=== PATIENT | female | born 1985 | race Two or more races ===

== ENCOUNTER → 2024-06-17 | Outpatient (CLI) | payer MEDICAID, SELFPAY ==
--- NOTE | 2024-06-17 07:45 | XR_ITS ---
Examination: MRI lumbar spine without contrast Date and time of exam: June 17, 2024 0735 hrs. Comparison February 25, 2015 Indications: Low back pain radiating down the right leg 15 years after fall injury, worse the last year Technique: Multiple MRI axial and sagittal sections lumbar spine. Sagittal T2-weighted images, TR 3500, TE 118 T1 weighted transverse sections, TR 688 T8.5, T2-weighted sagittal sections T1 weighted sagittal sections TR 621, TE 30 T2 axial sections, TR 4, 190, TE 84. Findings: Grade 1 anterolisthesis L5 on S1 Advanced disc during posteriorly L5-S1 Adequate marrow signal lumbar vertebral bodies No lumbar vertebral body compression fracture L5-S1 7 mm central lumbar disc bulge extending to the foraminal regions with severe left moderate right L5 ganglionic compression L4-L5 no disc protrusion L3-L4 3 mm central lumbar disc bulge L2-L3 no disc protrusion L1-L2 no disc protrusion Impression: L5-S1 7 mm central lumbar disc bulge extending to the foraminal regions with severe left moderate right L5 ganglionic compression L3-L4 3 mm central lumbar disc bulge
== END | disposition home or self-care (01) ==
PROVIDERS: PCP Specialist; Referring Provider Specialist; Visit Provider Specialist
DX: M51.369 Other intervertebral disc degeneration, lumbar region without mention of lumbar back pain or lower extremity pain (principal); M51.379 Other intervertebral disc degeneration, lumbosacral region without mention of lumbar back pain or lower extremity pain; G95.20 Unspecified cord compression
CPT/HCPCS: 72148

== ENCOUNTER 2025-04-01 16:36 | Emergency (ER) | payer MEDICAID, SELFPAY ==
[2025-04-01 16:44] VITALS: BP 141/95; PULSE 110; RESP 18; TEMP 37.5; O2SAT 98; BMI 36.7
--- NOTE | 2025-04-01 16:51 | EDNOTE_ITS ---
<Statement entered by Marcelina Du MD - 04/14/25 14:16> As co-signing physician, I was present and available for consult prn. I concur with the plan and care as documented by the midlevel provider. ED Back Injury Pain RME/HPI General Chief Complaint: Back Pain/Injury Stated Complaint: L) LOWER BACK PAIN; DIFFICULTY WALKING X 6 DAYS Time Seen by Provider: 04/01/25 16:39 Source: patient, family, RN notes reviewed and old records reviewed Arrival date/time: 04/01/25 16:36 Mode of arrival: ambulatory Limitations: no limitations RME / HPI RME / HPI Narrative: 40yof presents to ED for 6-day history of left lower back pain radiating down LLE. No preceding injury or fall. Patient reports history of herniated disks. Reports worsening back pain with movement and ambulation. No fever, nausea/vomiting, abdominal/flank pain, dysuria/hematuria, LE weakness, numbness/tingling or bowel/bladder incontinence reported. Tylenol taken earlier today with mild relief. Related Data Previous Rx's ?Medication ?Instructions ?Recorded ibuprofen 600 mg tablet 600 mg PO Q6H PRN pain #30 t abs 04/01/25 lidocaine 5 % topical patch 1 patch topical QDAY PRN p ain #15 04/01/25 ea methocarbamol 500 mg tablet 1,000 mg (2 x 500 mg) PO Q 8H PRN 04/01/25 pain #30 tabs methylprednisolone 4 mg tablets in See Rx Instructions .Route 04/01/25 a dose pack (Medrol (Brendan)) .COMPLEX #21 tabs Allergies Allergy/AdvReac Type Severity Reaction Status Date / Time No Known Allergies Allergy Verified 04/01/25 16:39 Review of Systems Review of Systems Systems Reviewed: All systems reviewed, normal except as documented Constitutional Constitutional: Denies chills and Denies fever(s) Gastrointestinal Gastrointestinal: Denies abdominal pain, Denies fecal incontinence, Denies nausea and Denies vomiting Genitourinary Genitourinary: Denies dysuria, Denies flank pain, Denies hematuria and Denies urinary incontinence Musculoskeletal Musculoskeletal: Reports back pain, Denies numbness and Denies tingling Neurologic Neurologic: Denies localized weakness, Denies numbness and Denies tingling Past Medical History Past Medical History GASTROINTESTINAL: Positive Obesity Surgical History OTHER SURGICAL HX: lipoma removal Social History SMOKING STATUS: Never smoker SUBSTANCE USE: does not use ALCOHOL: Never ED Exam General Limitations: Present no limitations General appearance: Present alert and in no apparent distress Head Head exam: Present atraumatic and normocephalic Eye Eye exam: Present normal appearance, PERRL and EOMI ENT ENT exam: Present normal exam and mucous membranes moist Neck Neck exam: Present normal inspection and full ROM Chest Chest inspection: Present normal inspection and symmetric chest wall rise Respiratory Respiratory exam: Present normal lung sounds bilaterally; Absent respiratory distress Cardiovascular Cardiovascular exam: Present normal rhythm and tachycardia (mild, HR 110) Abdominal Exam Abdominal exam: Present soft; Absent distention or tenderness Extremities Exam Extremities exam: Present normal inspection and full ROM Back Exam Back exam: Present paraspinal tenderness (Left lumbar); Absent vertebral tenderness Neurological Exam Neurological exam: Present alert, oriented X3, CN II-XII intact, normal gait and other (No saddle anesthesia); Absent motor sensory deficit Psychiatric Psychiatric exam: Present normal affect and normal mood Skin Skin exam: Present warm, dry, intact and normal color Course Quality Measures none Orders Category Date Time Status HCG Qualitative,Urine Stat Lab 04/01/25 17:35 Completed CYCLObenzaPRINE [Flexeril] Med 04/01/25 16:50 Discontinued 10 mg PO X1 ONE Dexamethasone Inj [Decadron Inj] Med 04/01/25 16:50 Discontinued 10 mg IM X1 ONE Ketorolac Inj [Toradol Inj] Med 04/01/25 16:50 Discontinued 30 mg IM X1 ONE Lidocaine 5% Patch Med 04/01/25 16:50 Discontinued 1 patch TOP X1 ONE Vital Signs Vital signs: Vital Signs Temperature 99.5 F 04/01/25 16:44 Pulse Rate 110 H 04/01/25 16:44 Respiratory Rate 18 04/01/25 16:44 Blood Pressure 141/95 H 04/01/25 16:44 Pulse Oximetry (%) 98 04/01/25 16:44 Oxygen Delivery Method Room Air 04/01/25 16:44 Back Pain / Injury MDM Narrative MDM Narrative:: 40yof presents to ED for 6-day history of left lower back pain radiating down LLE. No preceding injury or fall. Patient reports history of herniated disks. Reports worsening back pain with movement and ambulation. No fever, nausea/vomiting, abdominal/flank pain, dysuria/hematuria, LE weakness, numbness/tingling or bowel/bladder incontinence reported. Tylenol taken earlier today with mild relief. Patient reassessed. Back pain improved after medications administered. Patient is neurologically intact, able to ambulate without difficulty. Encouraged rest, nsaid, muscle relaxer, ice/heat application prn. Stable for dc, RTED precautions given. Patient data External records reviewed:: [facility] previous records (02/26/18 ED visit for lumbosacral myofacial strain) Clinical information provided by:: patient Social determinants that could affect healthcare access:: other (specify) (poor access to healthcare, acculturation difficulty) Patient has the following chronic illnesses:: obesity How is presenting disease/condition affected by chronic disease/condition?: exacerbated by Evaluation data The following diagnostics were reviewed and interpreted by me:: other (specify) (None) Lab and/or radiology exams considered but not ordered:: L-spine x-rays: No history of fall/injury. No midline tenderness Interpretation Summary: na Medications / Prescriptions Medications or Prescriptions considered but not ordered:: None Medication administrations:: Medication Administration History Discontinued Medications Cyclobenzaprine HCl (Cyclobenzaprine 5 Mg Tablet) 10 mg PO X1 ONE Stop: 04/01/25 16:51 Last Admin: 04/01/25 17:49 Dose: 10 mg Documented By: FIONA Dexamethasone Sodium Phosphate (Dexamethasone Sod Phos Inj 10 Mg/Ml Vial) 10 mg IM X1 ONE Stop: 04/01/25 16:51 Last Admin: 04/01/25 17:50 Dose: 10 mg Documented By: FIONA Ketorolac Tromethamine (Ketorolac Inj 60 Mg/2 Ml Vial) 30 mg IM X1 ONE Stop: 04/01/25 16:51 Last Admin: 04/01/25 17:51 Dose: 30 mg Documented By: FIONA Lidocaine (Lidocaine 5% 1 Patch) 1 patch TOP X1 ONE Stop: 04/01/25 16:51 Last Admin: 04/01/25 17:51 Dose: 1 patch Documented By: FIONA Above medications administered in ED Consultations Consultation(s) initiated? (list below): No Diagnosis Differential diagnosis back pain/injury: lumbar radiculopathy, sciatica, strain of lumbar region, pyelonephritis and discitis Most likely diagnosis given after review of the tests above:: Low back pain, sciatica Admission Indicated Admission indicated?: not indicated Admission Request Was there a request for admission?: No Disposition Plan Disposition Plan: Discharge Discharge Attestation Discharge Attestation: The patient and all family members were given an opportunity to ask questions and understood the discharge instructions. Discharge instructions specifically effects, indications for sooner follow up or return to the emergency department, and the expected course of current diagnosis. Patient condition: Stable Discharge Plan Plan Patient Disposition: HOME (Self Care) Patient condition on transfer: Stable Prescriptions/Referrals Prescriptions/Med Rec: New ibuprofen 600 mg tablet 600 mg PO Q6H PRN (Reason: pain) Qty: 30 0RF methocarbamol 500 mg tablet 1,000 mg PO Q8H PRN (Reason: pain) Qty: 30 0RF methylprednisolone [Medrol (Brendan)] 4 mg tablets,dose pack See Rx Instructions .ROUTE .COMPLEX Qty: 21 0RF Rx Instructions: Use as directed on package insert. lidocaine 5 % adhesive patch,medicated 1 patch topical QDAY PRN (Reason: pain) Qty: 15 0RF Rx Instructions: leave on most painful area for up to 12 hrs Referrals: No Primary/Family,Physician [Primary Care Provider] - In 1 week Problem List Clinical Impression: Sciatica of left side, Low back pain Patient/Caregiver Discharge Instructions Education Materials: ED Sciatica Print Language: Kazakh Stand Alone Forms: Radha Award Info., Work/School Release, Patient Portal Info Letter JORGE/JOHNATHON Supervising Physician JORGE/JOHNATHON Supervising Physician: Ana Laura
[2025-04-01] MEDS: DEXAMETHASONE SOD PHOS INJ 10 MG/ML VIAL IM (17:50)
[2025-04-01] MEDS: KETOROLAC INJ 60 MG/2 ML VIAL 30 MG IM (17:51)
[2025-04-01] MEDS: LIDOCAINE 5% 1 PATCH TOP (17:51)
[2025-04-01 17:53] LABS: HCG Qualitative,Urine Negative
== END 2025-04-01 19:31 | disposition home or self-care (01) ==
PROVIDERS: Physician Assistant; Emergency Provider Emergency Medicine
DX: M54.42 Lumbago with sciatica, left side (principal)
CPT/HCPCS: 81025; 96372; 99283; J1100; J1885; J3490; A9270

== ENCOUNTER 2025-05-10 05:37 | Inpatient (IN) | payer MEDICAID, SELFPAY ==
[2025-05-10] VITALS (8 sets, daily range): BP systolic 117–138; BP diastolic 75–95; PULSE 76–102; RESP 13–20; TEMP 36.6–36.8; O2SAT 96–100; BMI 35.9
--- NOTE | 2025-05-10 06:14 | EKG_ITS ---
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
--- NOTE | 2025-05-10 06:14 | XR_ITS ---
Examination: Transvaginal ultrasound of the pelvis, complete Technique: Transvaginal sonographic images pelvis performed using min scale imaging Exam date and time: May 10, 2025, 0831 hours INDICATION: Lower back pain pelvic pain vaginal bleeding beginning 4 days ago FINDINGS: Uterus 7.2 cm endometrial stripe 0.3 cm No uterine mass or intrauterine gestation Right ovary 2.8 cm arterial flow Left ovary 4.1 cm arterial flow IMPRESSION: Negative study.
--- NOTE | 2025-05-10 06:16 | EDNOTE_ITS ---
ED General JEFFERYE/MIGUEL General Chief complaint: General Adult/Misc Complain Stated complaint: LEFT LOWER BACK PAIN, VAGINAL BLEEDING Time Seen by Provider: 05/10/25 06:04 Arrival date/time: 05/10/25 05:37 DEMAR / MIGUEL URIAS complaint: Vaginal bleeding DEMAR / MIGUEL narrative: 40-year-old female with a past medical history of abscess which drained on its own from her left buttock 2 years ago, chronic back pain which radiates to her left leg, last menstrual period April 14, who presents to the ER complaining of vaginal bleeding consistently for the past 4 days, patient reports that she used 6 pads since 10 PM last night and has been soaking through them. Denies any abnormal vaginal discharge, fever, nausea, vomiting, dysuria, abdominal pain, diarrhea, saddle anesthesias, weakness, incontinence. Patient states that she has been in the clinic a few times in the past 2 months and was given Toradol shots in her left buttock. Patient also endorses that her typical back pain has been flaring up for the past month as well worse in her buttock. Related Data Previous Rx's ?Medication ?Instructions ?Recorded ibuprofen 600 mg tablet 600 mg PO Q6H PRN pain #30 t abs 04/01/25 lidocaine 5 % topical patch 1 patch topical QDAY PRN p ain #15 04/01/25 ea methocarbamol 500 mg tablet 1,000 mg (2 x 500 mg) PO Q 8H PRN 04/01/25 pain #30 tabs methylprednisolone 4 mg tablets in See Rx Instructions .Route 04/01/25 a dose pack (Medrol (Brendan)) .COMPLEX #21 tabs Allergies Allergy/AdvReac Type Severity Reaction Status Date / Time No Known Allergies Allergy Verified 05/10/25 05:39 Review of Systems Review of Systems Systems Reviewed: All systems reviewed, normal except as documented Past Medical History Past Medical History NEUROLOGIC: Negative Neurological Disorders CARDIAC: Positive Cardiac Disorders and Hypercholesterolemia; Negative Congestive Heart Failure RESPIRATORY: Negative Chronic Obstructive Pulmonary Disease (COPD) GASTROINTESTINAL: Positive Obesity; Negative Gastrointestinal Disorders GENITOURINARY: Negative Genitourinary Disorders or Renal Disease REPRODUCTIVE: Positive Previous Pregnancies () MUSCULOSKELETAL: Positive Musculoskeletal Disorders, Arthritis and Degenerative Disk Disease ENDOCRINE: Negative Endocrine Disorders, Diabetes Mellitus Type 1 or Diabetes Mellitus Type 2 HEMATOLOGIC: Positive Blood Disorders and Anemia OTHER HISTORY: Negative Autoimmune Disease Family History FAMILY HISTORY: Negative Family Psychiatric Problems, Family Respiratory Disorders, Family Cardiac Disorders, Family Gastrointestinal Problems, Family Cancer, Family Surgery or Family Anesthesia Reaction Social History SMOKING STATUS: Never smoker SUBSTANCE USE: does not use ED Exam Narrative Physical exam: Constitutional: Patient alert and oriented. Well appearing. No acute distress. Not toxic appearing. Head: Normocephalic, atraumatic. Eyes: Periorbital regions bilaterally normal to inspection. Conjunctiva clear bilaterally. Sclera anicteric bilaterally. Pupils equal, round, reactive to light bilaterally. Extraocular movements intact bilaterally. Mouth/Throat: Mucous membranes moist. No stridor or muffled voice. No trismus. Handling secretions without difficulty. Airway widely patent. Neck: Supple. Trachea midline. No JVD. No nuchal rigidity. Normal range of motion. Respiratory: Normal effort. No accessory muscle use or respiratory distress. Lungs clear to auscultation bilaterally without rhonchi, wheezes, or crackles. Cardiovascular: RRR. Normal S1/S2. No murmurs or rubs. Radial pulses intact bilaterally. Abdomen: Soft. Non-distended. Non-tender throughout. No pulsatile mass. No guarding or rebound. Negative Martinez?s sign. Negative McBurney?s point tenderness. Negative Rovsing?s. Back: No midline tenderness or step-offs. No CVA tenderness to palpation bilaterally. Positive left paralumbar tenderness to palpation. Upper Extremities: No gross deformities. 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 No calf tenderness. Heel-toe gait intact. Negative straight leg raise bilaterally. Neuro: Speech normal. No gross motor or sensory deficits to upper or lower extremities bilaterally. GCS 15. CN II?XII grossly intact. Skin: Warm, dry, normal color. Psych: Normal affect. Cooperative. Normal insight. Course Quality Measures none Orders Category Date Time Status Admit to Inpatient Status Routine Admission 05/10/25 12:12 Active Patient Condition Routine Admission 05/10/25 12:07 Ordered EKG (ED ONLY) *Do not use* NOW Care 05/10/25 06:14 Completed NPO NOW Care 05/10/25 06:14 Active NPO NOW Care 05/10/25 12:00 Active Notify provider NEEDED Care 05/10/25 12:07 Active Sequential Compression Device QSHIFT Care 05/10/25 12:12 Active Diet NPO (NOW) Diet 05/10/25 06:14 Completed Diet NPO (NOW) Diet 05/10/25 12:[address] abdomen pelvis wo con Stat Exams 05/10/25 07:41 Completed EKG (ED Only) Stat Exams 05/10/25 06:14 Ordered US soft tissue lower back abd Stat Exams 05/10/25 09:18 Taken US transvaginal Stat Exams 05/10/25 06:14 Completed Basic Metabolic Panel AM DRAW Lab 05/11/25 05:00 Ordered Basic Metabolic Panel AM DRAW Lab 05/12/25 05:00 Ordered Basic Metabolic Panel AM DRAW Lab 05/13/25 05:00 Ordered Blood Culture (Lab) Stat Lab 05/10/25 06:40 Received CBC AM DRAW Lab 05/11/25 05:00 Ordered CBC AM DRAW Lab 05/12/25 05:00 Ordered CBC AM DRAW Lab 05/13/25 05:00 Ordered CBC Stat Lab 05/10/25 06:43 Completed CMP [Comprehensive Metabolic Panel] Stat Lab 05/10/25 06:43 Completed HCG,Qualitative Serum Stat Lab 05/10/25 06:43 Completed Lactic Acid [Lactate (Lactic Acid)] Stat Lab 05/10/25 06:43 Completed Lipase Stat Lab 05/10/25 06:43 Completed Magnesium AM DRAW Lab 05/11/25 05:00 Ordered PT [Prothrombin Time with INR] Stat Lab 05/10/25 06:43 Completed Partial Thromboplastin Time Stat Lab 05/10/25 06:43 Completed Phosphorous AM DRAW Lab 05/11/25 05:00 Ordered Urinalysis, C/S if Indicated Stat Lab 05/10/25 07:19 Completed Acetaminophen Tab [Tylenol Tab] Med 05/10/25 12:12 Active 650 mg PO Q6H PRN Diazepam [Valium] Med 05/10/25 06:28 Discontinued 5 mg PO X1 ONE Ketorolac Inj [Toradol Inj] Med 05/10/25 06:14 Discontinued 30 mg IM X1 ONE Lidocaine 5% Patch Med 05/10/25 06:28 Discontinued 1 patch TOP X1 ONE Ondansetron Inj [Zofran Inj] Med 05/10/25 12:12 Active 4 mg IVP Q6H PRN Pantoprazole [Protonix] Med 05/11/25 09:00 Active 40 mg PO QDAY Piper/Tazo 3.375 gm Premix [Zosyn] Med 05/10/25 22:00 Active 3.375 gm in 50 ml IV Q8HR Piper/Tazo Inj [Zosyn Inj] 4.5 gm Med 05/10/25 12:00 Discontinued Sodium Chloride 0.9% (Pop) [NS 0.9% mini bag] 100 ml IV X1 Sodium Chloride 0.9% 1000 ml [Ns] 1,000 ml Med 05/10/25 12:00 Active IV 999 mls/hr Vancomycin/D5w 1500 mg Ivpb 300 ml Med 05/10/25 11:49 Active IV X1 Code Status Routine Oth 05/10/25 12:07 Ordered Vital Signs Vital signs: Vital Signs Temperature 98.1 F 05/10/25 05:43 Pulse Rate 102 H 05/10/25 05:43 Blood Pressure 131/95 H 05/10/25 05:43 Pulse Oximetry (%) 97 05/10/25 05:43 Discharge Plan Plan Patient Disposition: Admit Acute Care w/in Hospital Patient condition on transfer: Stable Prescriptions/Referrals Prescriptions/Med Rec: No Action ibuprofen 600 mg tablet 600 mg PO Q6H PRN (Reason: pain) Qty: 30 0RF methocarbamol 500 mg tablet 1,000 mg PO Q8H PRN (Reason: pain) Qty: 30 0RF methylprednisolone [Medrol (Brendan)] 4 mg tablets,dose pack See Rx Instructions .ROUTE .COMPLEX Qty: 21 0RF Rx Instructions: Use as directed on package insert. lidocaine 5 % adhesive patch,medicated 1 patch topical QDAY PRN (Reason: pain) Qty: 15 0RF Rx Instructions: leave on most painful area for up to 12 hrs Referrals: Daphne Noriega PA-C [Primary Care Provider] - In 1 week Problem List Clinical Impression: Gluteal pain Impression comment: R/O Gluteal Abscess Patient/Caregiver Discharge Instructions Print Language: Hong Konger Stand Alone Forms: Radha Award Info., Patient Portal Info Letter MDM Narrative MDM hospital course (for use when minimal MDM required): MDM Concern for left gluteus large complex fluid collection concerning for abscess Patient will be given fluids kept n.p.o.,pain and nausea management prn, Vanco, Zosyn, plan for admission Labs Lab(s) Interpretation(s): EKG without acute ischemia, high grade AV block, arrhythmia CBC is notable for mild leukocytosis with a white count of 13.5, mild thrombocytosis at 513 without anemia CMP is notable for minimally elevated glucose of 108 without severe hyperbilirubinemia, transaminitis, acute renal failure or severe electrolyte derangement Lipase without severe elevation UA with hematuria of 4645 RBCs only 9 WBCs without bacteria doubt infection Ultrasound without acute pelvic abnormality and good ovarian flow bilaterally CT scan is notable for subcutaneous fat stranding in the left buttock without a focal fluid collection and recommended ultrasound to further evaluate Ultrasound notable for a complex 15 cm fluid collection Medication Administration(s) Medication Administration History Acetaminophen (Acetaminophen 325 Mg Tablet) 650 mg PO Q6H PRN PRN Reason: Fever >100.4 or pain Stop: 06/09/25 12:11 Piperacillin/Tazobactam/Dextrose (Zosyn) 3.375 gm in 50 mls @ 12.5 mls/hr IV Q8HR SUPA; Protocol Stop: 05/17/25 21:59 Vancomycin HCl/Dextrose (Vancomycin/D5w 1500 Mg Ivpb) 300 mls @ 120 mls/hr IV X1 ONE Stop: 05/10/25 14:18 Sodium Chloride (Ns) 1,000 mls @ 999 mls/hr IV .Q1H1M ONE Stop: 05/10/25 13:00 Ondansetron HCl (Ondansetron Inj 2 Mg/Ml Inj 2 Ml) 4 mg IVP Q6H PRN; Protocol PRN Reason: NAUSEA OR VOMITING Stop: 06/09/25 12:11 Pantoprazole Sodium (Pantoprazole 40 Mg Tablet) 40 mg PO QDAY SUPA Stop: 06/10/25 08:59 Discontinued Medications Diazepam (Diazepam 5 Mg Tablet) 5 mg PO X1 ONE Stop: 05/10/25 06:29 Last Admin: 05/10/25 07:46 Dose: 5 mg Documented By: BERYL Piperacillin Sod/Tazobactam (Sod 4.5 gm/ Sodium Chloride) 100 mls @ 200 mls/hr IV X1 ONE; Protocol Stop: 05/10/25 12:29 Ketorolac Tromethamine (Ketorolac Inj 30 Mg/Ml Vial) 30 mg IM X1 ONE Stop: 05/10/25 06:15 Last Admin: 05/10/25 07:45 Dose: 30 mg Documented By: BERYL Lidocaine (Lidocaine 5% 1 Patch) 1 patch TOP X1 ONE Stop: 05/10/25 06:29 Last Admin: 05/10/25 07:46 Dose: Not Given Documented By: BERYL Non-Admin Reason: Patient Refused Consultations/Discussions re: Management Consult #1: Date/time: 05/10/25 11:50 am Physician, specialty, service, details: Dr. Gupta, general surgery, he said he is agreeable to evaluate patient for possible drainage and to keep patient n.p.o. and admit to medicine Consult #2: Date/time: 05/10/25 11:56 am Physician, specialty, service, details: Dr. Hillman, internal medicine with Dr. Bender team, they will evaluate p atient for admission
[2025-05-10 07:00] LABS: Basophils # (Auto) 0.1 Thou/mm3 (0.0-0.2); Basophils % (Auto) 0 % (0-2.5); Eosinophils # (Auto) 0.2 Thou/mm3 (0.0-0.5); Eosinophils % (Auto) 1 % (0-10); Hematocrit 38.2 % (36.0-46.0); Hemoglobin 12.4 g/dL (12.0-16.0); Immature Granulocytes Auto 0.10 Thou/mm3 (0.00-0.00); Lymphocytes # (Auto) 2.5 Thou/mm3 (1.0-4.8); Lymphocytes % (Auto) 19 % (10-50); Mean Corpuscular HGB Conc 32.5 g/dl (31.0-37.0); Mean Corpuscular Hemoglobin 30.7 pg (25.0-35.0); Mean Corpuscular Volume 95 fL (80-100); Monocytes # (Auto) 0.7 Thou/mm3 (0.0-0.8); Monocytes % (Auto) 6 % (0-12); Neutrophils # (Auto) 9.9 Thou/mm3 (1.8-7.7); Neutrophils % (Auto) 74 % (37-80); Nucleated Red Blood Cell # 0.00 Thou/mm3 (0.00-0.00); Nucleated Red Blood Cell % 0 /100 WBC (0); Platelet Count 513 Thou/mm3 (140-440); RDW Standard Deviation 47.4 fL (36.4-46.3); Red Blood Count 4.04 Miln/mm3 (4.00-5.20); White Blood Count 13.5 Thou/mm3 (3.6-11.0)
[2025-05-10 07:05] LABS: Lactate (Lactic Acid) 1.0 mMol/L (0.4-2.0)
[2025-05-10 07:16] LABS: INR 1.0 (0.9-1.3); Partial Thromboplastin Time 30.7 Seconds (22.0-36.0); Prothrombin Time 10.3 Seconds (9.0-12.2)
[2025-05-10 07:27] LABS: Alanine Aminotransferase 8 U/L (10-49); Albumin, Serum 4.9 gm/dL (3.5-5.0); Albumin/Globulin Ratio 1.8 (1.2-2.2); Alkaline Phosphatase 96 U/L (46-116); Anion Gap 10 (7-16); Aspartate Amino Transferase 15 U/L (0-34); BUN/Creatinine Ratio 11 Ratio (12-20); Bilirubin,Total 0.3 mg/dL (0.3-1.2); Blood Urea Nitrogen 8 mg/dL (9-23); Calcium 9.2 mg/dL (8.3-10.6); Calcium (Corrected) 9.2 mg/dL (8.5-10.1); Carbon Dioxide 26.4 mMol/L (20.0-31.0); Chloride 103 mMol/L (98-107); Creatinine (Component) 0.7 mg/dL (0.6-1.3); Estimated Creatinine Clearance 106.5 mL/min (>60); Globulin 2.7 gm/dL (2.3-3.5); Glucose 108 mg/dL (74-106); Lipase 23 U/L (12-53); Osmolality,Calculated 276 (275-295); Potassium 4.2 mMol/L (3.4-5.1); Sodium 139 mMol/L (136-145); Total Protein 7.6 gm/dL (5.7-8.2); eGFR > 60 See Note
--- NOTE | 2025-05-10 07:41 | XR_ITS ---
Examination: CT abdomen and pelvis without contrast. Coronal 3-D reconstructions. Sagittal 2-D reconstructions. Date and time of exam: May 10, 2025, 0757 hours, comparison 02/26/2018 INDICATIONS: Left buttock swelling and pain radiating to the left leg and foot 1 month, heavy vaginal bleeding beginning April 27, 2025 CTDI: vol (mGy): 13.2 DLP: (mGycm): 804 Technique: Axial images of the abdomen have been obtained, 3 mm slice thickness Intravenous contrast material has not been administered. Low dose protocols were performed. One or more of the following dose reduction techniques were used; automated exposure control, adjustment of the mA and/or KV according to patient size, use of iterative reconstruction technique. Findings: Stable 13 mm pulmonary nodule left lower lobe with faint calcification No visualized liver or splenic lesion No gallstones No pancreatic or adrenal mass 1 mm nonobstructing right renal calculus, no hydronephrosis or ureteral calculi Aorta normal size Normal appendix Tiny fat-containing umbilical hernia No bowel obstruction or diverticulitis No pelvic mass Contracted urinary bladder Infectious inflammatory change in the subcutaneous fatty tissue left buttock No definite soft tissue abscess No perianal abscess IMPRESSION: Infectious inflammatory change in the subcutaneous fatty tissue left buttock with adjacent skin thickening No definite abscess but recommend ultrasound soft tissue in this region follow-up
[2025-05-10 07:42] LABS: HCG,Qualitative Serum Negative
[2025-05-10] MEDS: KETOROLAC INJ 30 MG/ML VIAL IM (07:45)
[2025-05-10] MEDS: DIAZEPAM 5 MG TABLET PO (07:46)
[2025-05-10 07:58] LABS: Collection Type, Urine Voided; Squamous Epithelial Cell,Urine 0 /hpf (0-5)
[2025-05-10 08:27] LABS: Bilirubin,Urine Negative (Negative); Blood,Urine 3+ (Negative); Culture Indicated,Urine Not Indicated; Glucose, Urine Negative (Negative); Ketones,Urine Negative (Negative); Leukocyte Esterase,Urine Positive (Negative); Nitrite,Urine Negative (Negative); PH,Urine 6.0 (5.0-7.0); Protein,Urine 2+ (Neg - Trace); RBC,Urine 4645 /hpf (0-3); Specific Gravity,Urine 1.021 (1.001-1.035); Urobilinogen,Urine Negative mg/dL (0.0-1.0); WBC,Urine 9 /hpf (0-5)
[2025-05-10 08:32] LABS: Clarity,Urine Bloody (Clear/Hazy); Color,Urine Drk Red (Lt Yel-Yel)
--- NOTE | 2025-05-10 09:18 | XR_ITS ---
EXAMINATION: Ultrasound soft tissue lower back TECHNIQUE: Grayscale sonographic images soft tissue left lower back Date and time: May 10, 2025, 10:22 a.m. INDICATIONS: Left lower back swelling and pain beginning 1 month ago FINDINGS: Soft tissue mass in the lower back 14.8 x 4.9 x 7.0 cm indistinct margins IMPRESSION: Large soft tissue mass with indistinct margins left lower back, 14.8 x 4.9 x 7.0 cm, consider infectious mass, soft tissue tumor and less likely Recommend continued follow-up ultrasound post antibiotic therapy
--- NOTE | 2025-05-10 12:30 | ESHP_ITS ---
Documentation for date of: 05/10/25 [facility] History of Present Illness Chief complaint: Left buttock pain/menorrhagia History of present illness: Patient is a 44-year-old Kazakh-speaking female with chronic left-sided low- back pain radiating to the leg and a remote history of a self-drained left- buttock abscess two years ago. She presents due to continuous vaginal bleeding since 04/27 and severe left-buttock pain. Per patient and family, vaginal bleeding has been heavy, requiring multiple pads daily, including 6 pads nightly. She reports intermittent clots. She has never experienced prolonged bleeding like this before. No associated abdominal pain, dysuria, nausea, vomiting, fever, or GI bleeding. She also reports worsening pain and swelling of the left buttock for ~1 month. She had multiple Toradol injections in that region over the past 1?2 months. No trauma. She describes the pain as severe and worsening, causing difficulty sitting. No drainage. In the ED, exam showed a ~15 cm erythematous, indurated, tender area over the left buttock. Labs showed leukocytosis 13.[address] and ultrasound demonstrated large soft-tissue inflammatory mass highly concerning for abscess. General surgery (Dr. Gupta) evaluated and plans for OR incision & drainage today. She is agreeable. ROS: * : Heavy vaginal bleeding since 04/27. No dysuria. * MSK: Severe left-buttock pain. Chronic back pain. * Neuro: No weakness or numbness. * Skin: Painful swollen buttock lesion. * All others negative unless stated above Past medical history: * Hypertension * Back pain/disc/sciatica? Medications: * Unknown blood pressure medication patient could not recall, pending med rec's. Past surgical history: Negative Allergies: NKDA Family history: Not pertinent Exam Vital Signs Temp Pulse BP Pulse Ox 98.1 F 102 H 131/95 H 97 05/10/25 05:43 05/10/25 05:43 05/10/25 05:43 05/10/25 05:43 Narrative Exam General: Alert, in moderate pain but non-toxic. HEENT: MMM, no scleral icterus. Heart: Tachycardic, regular rhythm, no murmurs. Lungs: Clear to auscultation bilaterally. Abdomen: Soft, NT/ND. Back/Buttock: Large ~15 cm erythematous, indurated, tender area left buttock with ecchymosis. No drainage. Neuro: No focal deficits. Ext: No edema. Skin: Warm, dry. Results: Labs 05/11/25 04:35 05/11/25 04:35 Labs: Short CBC 05/10/25 Range/Units 06:43 WBC 13.5 H (3.6-11.0) Thou/mm3 Hgb 12.4 (12.0-16.0) g/dL Hct 38.2 (36.0-46.0) % Plt Count 513 H (140-440) Thou/mm3 BMP 05/10/25 06:43 Sodium 139 Potassium 4.2 Chloride 103 Carbon Dioxide 26.4 BUN 8 L Creatinine 0.7 Glucose 108 H Calcium 9.2 Liver Function 05/10/25 Range/Units 06:43 Total Bilirubin 0.3 (0.3-1.2) mg/dL AST 15 (0-34) U/L ALT 8 L (10-49) U/L Alkaline Phosphatase 96 (46-116) U/L Albumin 4.9 (3.5-5.0) gm/dL Urine 05/10/25 Range/Units 07:19 Urine Color Drk Red A (Lt Yel-Yel) Urine Clarity Bloody A (Clear/Hazy) Urine pH 6.0 (5.0-7.0) Ur Specific [place] 1.021 (1.001-1.035) Urine Protein 2+ A (Neg - Trace) Urine Glucose (UA) Negative (Negative) Quality Measures Quality Measures VTE prophylaxis Medications Home Medications and Allergies Home Medications ?Medication ?Instructions ?Recorded ?Confirmed ?Type lisinopril 10 1 tab PO QDAY 05/11/2505/11 History mg-hydrochlorothiazide 12.5 mg tablet tramadol 50 mg PO Q12HR PRN pain 04/2605/11/25 History Allergies Allergy/AdvReac Type Severity Reaction Status Date / Time No Known Allergies Allergy Verified 05/10/25 05:39 Visit Medications Acetaminophen (Acetaminophen 325 Mg Tablet) 650 mg PO Q6H PRN PRN Reason: Fever >100.4 or pain Stop: 06/09/25 12:11 Piperacillin/Tazobactam/Dextrose (Zosyn) 3.375 gm in 50 mls @ 12.5 mls/hr IV Q8HR SUPA; Protocol Stop: 05/17/25 21:59 Vancomycin HCl/Dextrose (Vancomycin/D5w 1500 Mg Ivpb) 300 mls @ 120 mls/hr IV X1 ONE Stop: 05/10/25 14:18 Sodium Chloride (Ns) 1,000 mls @ 999 mls/hr IV .Q1H1M ONE Stop: 05/10/25 13:00 Ondansetron HCl (Ondansetron Inj 2 Mg/Ml Inj 2 Ml) 4 mg IVP Q6H PRN; Protocol PRN Reason: NAUSEA OR VOMITING Stop: 06/09/25 12:11 Pantoprazole Sodium (Pantoprazole 40 Mg Tablet) 40 mg PO QDAY SUPA Stop: 06/10/25 08:59 Discontinued Medications Diazepam (Diazepam 5 Mg Tablet) 5 mg PO X1 ONE Stop: 05/10/25 06:29 Last Admin: 05/10/25 07:46 Dose: 5 mg Piperacillin Sod/Tazobactam (Sod 4.5 gm/ Sodium Chloride) 100 mls @ 200 mls/hr IV X1 ONE; Protocol Stop: 05/10/25 12:29 Ketorolac Tromethamine (Ketorolac Inj 30 Mg/Ml Vial) 30 mg IM X1 ONE Stop: 05/10/25 06:15 Last Admin: 05/10/25 07:45 Dose: 30 mg Lidocaine (Lidocaine 5% 1 Patch) 1 patch TOP X1 ONE Stop: 05/10/25 06:29 Last Admin: 05/10/25 07:46 Dose: Not Given Assessment & Plan Plan 44-year-old female with history of chronic back pain and prior left-buttock abscess presents with 13 days of heavy vaginal bleeding and 1 month of worsening left-buttock painful swelling, found to have large soft-tissue mass suspicious for cellulitis/abscess, admitted for IV antibiotics and planned OR I&D by surgery. # Left buttock cellulitis with suspected abscess Large erythematous, indurated mass with US showing 14.8 ? 4.9 ? 7 cm infectious mass. Surgery planning I&D. Plan: * NPO * Start IV Zosyn. * Pain control * Maximus borders, monitor for progression * Proceed to OR today for I&D * Post-op wound care per surgery * Blood cultures if fever develops # Abnormal uterine bleeding (ongoing since 04/27) Prolonged heavy bleeding; Hgb stable. TVUS negative. Plan: * Trend CBC daily. * Monitor pad counts * If persists, outpatient DOCTOR OF DENTAL MEDICINE referral # Tachycardia Likely pain/infection. Plan: * Pain control * Treat abscess # Hematuria UA likely contaminated. Plan: * Repeat UA after bleeding improves * Monitor renal function # Chronic back pain No red-flag symptoms. Plan: * Pain regimen * Informed patient to avoid further gluteal injections # Hypertension Home amlodipine/lisinopril. Unknown, patient could not recall. Plan: * Continue home regimen once med rec's completed * Monitor BP Health Maintenance: Disposition: Admit to inpatient medicine; NPO; plan for OR I&D today. Diet: NPO for surgery. DVT Prophylaxis: SCDs while in bed. GI Prophylaxis: Not required unless clinically indicated. Code Status: Full Code. ----- Plan discussed with attending physician Dr. Napoleon Salomon MD PGY-1 Internal Medicine Attending Provider Attestation/Addendum I have examined the patient, reviewed labs and imaging findings, discussed the case with the resident(s), and reviewed entered orders. I agree with the plan of care as outlined in this note, with these additional summaries/recommendations: After examination of the patient and review of the clinical data, I feel that this patient needs admission to the hospital for further treatment and evaluation. Patient is a 40-year-old female with a medical history of chronic lower back pain presents to [facility] emergency department on 05/10/2025 with chief complaint of left buttock pain and vaginal bleeding. In the emergency room patient underwent soft tissue ultrasound which revealed large soft tissue mass with indistinct margins left lower back 14.8 X4.9X 7.0 cm abscess with contaminant cellulitis. Leukocytosis present to 13.5. Blood cultures taken and follow-up results when available. General surgery was consulted and patient will be taken for incision and drainage of left buttock abscess. Continue pain management and wound care. Patient underwent transvaginal ultrasound for menorrhagia which was negative and no endometrial thickening noted. We will continue to monitor and if worsens we will consider inpatient gynecology consult versus outpatient. Patient updated on the plan and agreement. All questions answered to satisfaction. Please see residents note for additional details and management. Dr. Napoleon MD
--- NOTE | 2025-05-10 13:48 | ESCONSULT_ITS ---
HPI Consult details Consult date: 05/10/25 Reason for consultation narrative: Left hip and buttock pain History of present illness: 40-year-old obese female with history of low back pain presented to the emergency department with worsening left buttock pain. Her symptoms started about a month ago after she had an injection. She was seen in the emergency department about a month ago, she was given pain medication was discharged. She continued to have worsening symptoms of pain and swelling in left buttock radiating to her left thigh. She denies history of trauma, insect or spider bites. CT scan revealed large fluid collection deep in the left buttock. Review of Systems Constitutional Constitutional: Denies chills and Denies fever(s) Cardiovascular Cardiovascular: Denies chest pain Respiratory Respiratory: Denies cough Gastrointestinal Gastrointestinal: Denies abdominal pain, Denies nausea and Denies vomiting Genitourinary Genitourinary: Denies difficulty voiding Musculoskeletal Musculoskeletal: Reports back pain Hematologic/Lymphatic Hematologic/Lymphatic: Denies easy bleeding and Denies easy bruising Past Medical History Surgical History OTHER SURGICAL HX: Excision of left shoulder lipoma Social History SMOKING STATUS: Never smoker SUBSTANCE USE: does not use ALCOHOL: Never Meds Home Medications and Allergies Allergies Allergy/AdvReac Type Severity Reaction Status Date / Time No Known Allergies Allergy Verified 05/10/25 05:39 Exam Vital Signs Temp Pulse BP Pulse Ox 98.1 F 102 H 131/95 H 97 05/10/25 05:43 05/10/25 05:43 05/10/25 05:43 05/10/25 05:43 Constitutional Constitutional: no acute distress Routine Abdominal Exam Abdominal: Present soft and normoactive bowel sounds; Absent tenderness or distended Routine Rectal Exam Comments: Cellulitis and induration left buttock Results Results: Laboratory Laboratory results: results reviewed Results: Imaging CT scan - abdomen: report reviewed and image reviewed CT scan - pelvis: report reviewed and image reviewed Assessment & Plan Additional Assessment Additional comments: Left hip and buttock pain and cellulitis with most likely underlying abscess Plan Keep NPO with IV antibiotics. Will take to OR for incision and drainage of left buttock abscess. Risks include but not limited to infection, bleeding, chronic nonhealing wound, need for further procedure and or operation discussed with the patient via journalists and other writers. Benefits alternatives explained to her, all her questions answered, she agreed and consented to proceed with the operation.
--- NOTE | 2025-05-10 14:28 | PC.NURSE ---
Report given to ESTELA Bowens. IV Vanco taken up to med surg floor with patient.
--- NOTE | 2025-05-10 15:02 | PC.NURSE ---
Patient arrived on the floor at 14:38 while I was at lunch. I came back from lunch and patient was going off the floor for surgery.
--- NOTE | 2025-05-10 15:55 | ESOP_ITS ---
Date of Procedure 05/10/25 Pre Op Diagnosis Left buttock abscess Post Op Diagnosis Deep left buttock abscess Procedure Incision and drainage of left buttock abscess Findings Induration and a large abscess cavity deep within the left gluteal muscle Procedure Description Patient brought into the operating room in supine position. After admin istration of general tracheal anesthesia, she was placed in right lateral decubitus position. Her left buttock was prepped and draped in standard surgical manner. An approximately 3 cm incision was made over the area of induration and dissection was deepened and soft tissue. She was noted to have deep and large abscess cavity within the left gluteal muscle. The abscess cavity was evacuated, copious amount of purulent drainage noted. Cultures were obtained. Hemostasis was adequate and satisfactory. The cavity was washed and irrigated with Betadine mixed with peroxide and saline and further washed with warm saline. The cavity was then packed with wet-to-dry dressings. She was placed in supine position and extubated. She was breathing spontaneously and without difficulty and was transferred to postanesthesia care in stable condition. Instruments, needles and sponge counts were reported to be correct x 2. Anesthesia GETA Pathology / specimen Other (Cultures from the abscess cavity) Estimated Blood Loss 5 Condition Stable Disposition PACU Surgeon Luis Gupta MD Surgical Staff Operation Date: 05/10/25 15:00 <No data on this case meets the specified criteria>
--- NOTE | 2025-05-10 16:30 | SUR.PHASEI ---
1558: pt arrived to PACU via gurney drowsy but arouses to voice, breathing unlabored, dressing to left buttock clean, dry, and intact, report from Spencer PALMER 1618: pt tolerating ice chips without difficulty swallowing or n/v 1630: pt awake, alert, able to follow commands, breathing unlabored, dressing to left buttock clean, dry, and intact, report called to Gogo PALMER, pt transferred to room at this time.
[2025-05-10] MEDS: VANCOMYCIN/D5W 1500 MG IVPB 300 ML 120 MG IV (17:08)
[2025-05-10] MEDS: PIPER/TAZO INJ 4.5 GM in SODIUM CHLORIDE 0.9% (POP) 100 ML IV (17:10)
[2025-05-10] MEDS: ASCORBIC ACID 250 MG TABLET 500 MG PO (21:44)
[2025-05-10] MEDS: PIPER/TAZO 3.375 GM PREMIX 3.375 GM/50 ML BAG IV (21:45)
[2025-05-11] VITALS: BP 127/79; PULSE 85; RESP 16; TEMP 36.9; O2SAT 97
[2025-05-11 04:00] VITALS: BP 117/73; PULSE 83; RESP 17; TEMP 36.9; O2SAT 97
[2025-05-11 05:38] LABS: Basophils # (Auto) 0.0 Thou/mm3 (0.0-0.2); Basophils % (Auto) 0 % (0-2.5); Eosinophils # (Auto) 0.1 Thou/mm3 (0.0-0.5); Eosinophils % (Auto) 1 % (0-10); Hematocrit 30.4 % (36.0-46.0); Hemoglobin 9.7 g/dL (12.0-16.0); Immature Granulocytes Auto 0.08 Thou/mm3 (0.00-0.00); Lymphocytes # (Auto) 1.6 Thou/mm3 (1.0-4.8); Lymphocytes % (Auto) 12 % (10-50); Mean Corpuscular HGB Conc 31.9 g/dl (31.0-37.0); Mean Corpuscular Hemoglobin 30.4 pg (25.0-35.0); Mean Corpuscular Volume 95 fL (80-100); Monocytes # (Auto) 0.8 Thou/mm3 (0.0-0.8); Monocytes % (Auto) 6 % (0-12); Neutrophils # (Auto) 10.8 Thou/mm3 (1.8-7.7); Neutrophils % (Auto) 80 % (37-80); Nucleated Red Blood Cell # 0.00 Thou/mm3 (0.00-0.00); Nucleated Red Blood Cell % 0 /100 WBC (0); Platelet Count 411 Thou/mm3 (140-440); RDW Standard Deviation 48.0 fL (36.4-46.3); Red Blood Count 3.19 Miln/mm3 (4.00-5.20); White Blood Count 13.4 Thou/mm3 (3.6-11.0)
[2025-05-11 05:56] LABS: Anion Gap 7 (7-16); BUN/Creatinine Ratio 14 Ratio (12-20); Blood Urea Nitrogen 10 mg/dL (9-23); Calcium 8.8 mg/dL (8.3-10.6); Carbon Dioxide 29.1 mMol/L (20.0-31.0); Chloride 106 mMol/L (98-107); Creatinine (Component) 0.7 mg/dL (0.6-1.3); Estimated Creatinine Clearance 106.5 mL/min (>60); Glucose 91 mg/dL (74-106); Magnesium 2.2 mg/dL (1.6-2.6); Osmolality,Calculated 282 (275-295); Phosphorous 4.0 mg/dL (2.4-5.1); Potassium 4.2 mMol/L (3.4-5.1); Sodium 142 mMol/L (136-145); eGFR > 60 See Note
[2025-05-11] MEDS: PIPER/TAZO 3.375 GM PREMIX 3.375 GM/50 ML BAG IV ×3 (06:04→21:55)
[2025-05-11 07:40] VITALS: BP 133/87; PULSE 82; RESP 17; TEMP 36.2; O2SAT 97
[2025-05-11] MEDS: ASCORBIC ACID 250 MG TABLET 500 MG PO ×2 (08:32→21:55)
[2025-05-11] MEDS: ZINC SULFATE 220 MG CAPSULE PO (08:33)
[2025-05-11] MEDS: ONDANSETRON INJ 2 MG/ML INJ 2 ML 4 MG IVP (10:05)
--- NOTE | 2025-05-11 11:39 | ESPR_ITS ---
Documentation for date of: 05/11/25 Subjective Subjective Interval history: No overnight events. Patient was examined at bedside; they appear A&Ox3 and in NAD. Today, they endorse some mild left buttock pain but otherwise deny any new symptoms or complaints. Vitals/labs today significant for WBC 13.4, Hgb 12.4- >9.7. On exam, patient's left buttock is dressed in wound wrappings and the remainder of the exam is non-contributory. Patient is s/p 05/10 I&D of left buttock abscess and seems to be recovering well. 05/10 BCx show NG24HR and 05/10 abscess Cx showed 3+ GPCs. 05/10 TVUS was unremarkable but patient has been counseled on the importance of following up with OBGYN in the outpatient setting regarding her abnormal uterine bleeding. Hemoglobin A1c has been ordered and General Surgery has started zinc sulfate 220 mg PO qD. Exam Vital Signs Temp Pulse Resp BP Pulse Ox O2 Del Method O2 Flow Rate 97.2 F 82 17 133/87 H 97 Room Air 2 05/11/25 07:40 05/11/25 07:40 05/11/25 07:40 05/11/25 07:40 05/11/25 07:40 05/11/25 07:40 05/10/25 16:13 Narrative Exam General: Alert, in NAD, and non-toxic. HEENT: MMM, no scleral icterus. Heart: Tachycardic, regular rhythm, no murmurs. Lungs: Clear to auscultation bilaterally. Abdomen: Soft, NT/ND. Back/Buttock: Area of left buttock abscess now dressed under wound wrappings. No drainage or bleeding. Neuro: No focal deficits. Ext: No edema. Skin: Warm, dry. Objective Labs 05/12/25 04:20 05/12/25 04:20 Labs: Laboratory Results - last 24 hr 05/11/25 04:35 WBC 13.4 H RBC 3.19 L Hgb 9.7 L D Hct 30.4 L MCV 95 MCH 30.4 MCHC 31.9 RDW Std Deviation 48.0 H Plt Count 411 D Neut % (Auto) 80 Lymph % (Auto) 12 [place] % (Auto) 6 Eos % (Auto) 1 Baso % (Auto) 0 Neut # (Auto) 10.8 H Lymph # (Auto) 1.6 [place] # (Auto) 0.8 Eos # (Auto) 0.1 Baso # (Auto) 0.0 Immature Gran # (Auto) 0.08 H Absolute Nucleated RBC 0.00 Immature Gran % 1 H Nucleated RBC % 0 Sodium 142 Potassium 4.2 Chloride 106 Carbon Dioxide 29.1 Anion Gap 7 BUN 10 Creatinine 0.7 Estim Creat Clear Calc 106.5 eGFR > 60 BUN/Creatinine Ratio 14 Glucose 91 Calculated Osmolality 282 Calcium 8.8 Phosphorus 4.0 Magnesium 2.2 Quality Measures Quality Measures VTE prophylaxis Assessment & Plan Assessment Current Active Medications: Generic Name Dose Route Start Last Admin Trade Name Freq PRN Reason Stop Dose Admin Acetaminophen 650 mg 05/10/25 12:12 Acetaminophen 325 Mg Tablet PO 06/09/25 12:11 Q6H PRN Fever >100.4 or pain Protocol Hydrocodone Bitart/Acetaminophen 1 tab 05/10/25 16:38 Hydrocodone/Apap 5/325 Tablet PO 05/15/25 16:37 Q6HR PRN PAIN SCALE 4-10(Mod-Sev Ascorbic Acid 500 mg 05/10/25 21:00 05/11/25 08:32 Ascorbic Acid 250 Mg Tablet PO 06/09/25 20:59 500 mg BID SUPA Administration Piperacillin/Tazobactam/Dextrose 3.375 gm in 50 mls @ 12.5 mls/hr 05/10/25 22:00 05/11/25 06:04 Zosyn IV 05/17/25 21:59 12.5 mls/hr Q8HR SUPA Administration Protocol Morphine Sulfate 3 mg 05/10/25 16:38 Morphine Sulf Inj 4 Mg/Ml Vial IVP 05/15/25 16:37 Q2H PRN PAIN SCALE 7-10 (Severe Ondansetron HCl 4 mg 05/10/25 12:12 05/11/25 10:05 Ondansetron Inj 2 Mg/Ml Inj 2 Ml IVP 06/09/25 12:11 4 mg Q6H PRN Administration NAUSEA OR VOMITING Protocol Zinc Sulfate 220 mg 05/11/25 09:00 05/11/25 08:33 Zinc Sulfate 220 Mg Capsule PO 06/10/25 08:59 220 mg QDAY SUPA Administration Plan 44-year-old female with history of chronic back pain and prior left-buttock abscess presents with 13 days of heavy vaginal bleeding and 1 month of worsening left-buttock painful swelling, found to have large soft-tissue mass suspicious for cellulitis/abscess, admitted for IV antibiotics and planned OR I&D by surgery. # Left buttock cellulitis with suspected abscess Large erythematous, indurated mass with US showing 14.8 ? 4.9 ? 7 cm infectious mass. Patient is now s/p I&D of left buttock abscess performed on 05/10 05/10 BCx showed NG24HR, 05/10 abscess Cx showed 3+ GPCs Plan: * NPO->Regular Diet * Zosyn 3.375 IV q8HR [05/10--] * Pain control * Post-op wound care per surgery * Zinc sulfate 220 mg PO qD (General Surgery recommendation) * Ascorbic acid 500 mg PO BID (General Surgery recommendation) # Abnormal uterine bleeding (ongoing since 04/27) Prolonged heavy bleeding; Hgb stable. TVUS negative. Plan: * Trend CBC daily. * Monitor pad counts * If persists, outpatient MANAGER [facility] referral (patient has been counseled on the importance of outpatient OBGYN follow-up) # Tachycardia Likely pain/infection. Plan: * Pain control * Treat abscess # Hematuria UA likely contaminated. Plan: * Repeat UA after bleeding improves * Monitor renal function # Chronic back pain No red-flag symptoms. Plan: * Pain regimen * Informed patient to avoid further gluteal injections # Hypertension Home amlodipine/lisinopril. Unknown, patient could not recall. Plan: * Continue home regimen once med rec's completed * Ordered hemoglobin A1c level * Monitor BP Health Maintenance: Disposition: Admit to inpatient medicine; changed from NPO to Regular Diet today; s/p I&D. Diet: Regular. DVT Prophylaxis: SCDs while in bed. GI Prophylaxis: Not indicated. Code Status: Full Code. ----- Plan discussed with attending physician Dr. Napoleon Thompson, DO PGY-1 Internal Medicine Attending Provider Attestation/Addendum I have examined the patient, reviewed labs and imaging findings, discussed the case with the resident(s), and reviewed entered orders. I agree with the plan of care as outlined in this note, with these additional summaries/recommendations: Patient is a 40-year-old female with a medical history of chronic lower back pain presents to [facility] emergency department on 05/10/2025 with chief complaint of left buttock pain and vaginal bleeding. In the emergency room patient underwent soft tissue ultrasound which revealed large soft tissue mass with indistinct margins left lower back 14.8 X4.9X 7.0 cm abscess with contaminant cellulitis. Leukocytosis present to 13.4. Blood cultures taken and follow-up results when available. General surgery was consulted and patient is POD #1 s/p incision and drainage of left buttock abscess. Continue pain management and wound care. Patient underwent transvaginal ultrasound for menorrhagia which was negative and no endometrial thickening noted. We will continue to monitor and if worsens we will consider inpatient gynecology consult versus outpatient. Patient updated on the plan and agreement. All questions answered to satisfaction. Please see residents note for additional details and management. Dr. Napoleon MD
[2025-05-11 11:44] VITALS: BP 126/81; PULSE 80; RESP 17; TEMP 36.2; O2SAT 97
[2025-05-11] MEDS: HYDROcodone/APAP 5/325 TABLET 1 TAB PO (12:04)
--- NOTE | 2025-05-11 13:41 | PD.SURPROG ---
Documentation for date of: 05/11/25 Subjective Subjective Narrative: Patient is seen and examined. Her pain is improving Exam Vital Signs Temp Pulse Resp BP Pulse Ox O2 Del Method O2 Flow Rate 97.2 F 80 17 126/81 97 Room Air 2 05/11/25 11:44 05/11/25 11:44 05/11/25 11:44 05/11/25 11:44 05/11/25 11:44 05/11/25 11:44 05/10/25 16:13 Constitutional Constitutional: no acute distress Routine Rectal Exam Comments: Still has minimal cellulitis over left buttock. The packing was removed, patient still has significant amount of purulent drainage Assessment & Plan Assessment Additional comments: Postop day #1 status post incision and drainage of left buttock abscess Plan Continue IV antibiotics as patient still has significant amount of purulent drainage. Wound care as directed PROCEDURES: Procedures Incision and drainage of left buttock abscess
[2025-05-11 16:00] VITALS: BP 122/76; PULSE 78; RESP 17; TEMP 36.2; O2SAT 97
--- NOTE | 2025-05-11 16:24 | PC.SS ---
Rounding: pending cultures, possible d/c tomorrow.
[2025-05-11 20:00] VITALS: BP 118/75; PULSE 77; RESP 18; TEMP 36.8; O2SAT 95
[2025-05-12] VITALS: BP 100/69; PULSE 75; RESP 16; TEMP 36.9; O2SAT 94
[2025-05-12 04:00] VITALS: BP 100/55; PULSE 82; RESP 18; TEMP 36.8; O2SAT 96
[2025-05-12 05:24] LABS: Basophils # (Auto) 0.0 Thou/mm3 (0.0-0.2); Basophils % (Auto) 0 % (0-2.5); Eosinophils # (Auto) 0.2 Thou/mm3 (0.0-0.5); Eosinophils % (Auto) 2 % (0-10); Hematocrit 30.2 % (36.0-46.0); Hemoglobin 9.5 g/dL (12.0-16.0); Immature Granulocytes Auto 0.06 Thou/mm3 (0.00-0.00); Lymphocytes # (Auto) 1.5 Thou/mm3 (1.0-4.8); Lymphocytes % (Auto) 19 % (10-50); Mean Corpuscular HGB Conc 31.5 g/dl (31.0-37.0); Mean Corpuscular Hemoglobin 30.3 pg (25.0-35.0); Mean Corpuscular Volume 96 fL (80-100); Monocytes # (Auto) 0.5 Thou/mm3 (0.0-0.8); Monocytes % (Auto) 6 % (0-12); Neutrophils # (Auto) 6.0 Thou/mm3 (1.8-7.7); Neutrophils % (Auto) 73 % (37-80); Nucleated Red Blood Cell # 0.00 Thou/mm3 (0.00-0.00); Nucleated Red Blood Cell % 0 /100 WBC (0); Platelet Count 465 Thou/mm3 (140-440); RDW Standard Deviation 48.9 fL (36.4-46.3); Red Blood Count 3.14 Miln/mm3 (4.00-5.20); White Blood Count 8.2 Thou/mm3 (3.6-11.0)
[2025-05-12] MEDS: PIPER/TAZO 3.375 GM PREMIX 3.375 GM/50 ML BAG IV ×3 (05:33→21:07)
[2025-05-12 05:46] LABS: Anion Gap 9 (7-16); BUN/Creatinine Ratio 11 Ratio (12-20); Blood Urea Nitrogen 9 mg/dL (9-23); Calcium 8.6 mg/dL (8.3-10.6); Carbon Dioxide 28.4 mMol/L (20.0-31.0); Chloride 106 mMol/L (98-107); Creatinine (Component) 0.8 mg/dL (0.6-1.3); Estimated Creatinine Clearance 93.2 mL/min (>60); Glucose 101 mg/dL (74-106); Glucose Estimated Average 108 mg/dL (80-131); Hemoglobin A1C 5.4 % Hgb (4.8-6.0); Osmolality,Calculated 283 (275-295); Potassium 3.8 mMol/L (3.4-5.1); Sodium 143 mMol/L (136-145); eGFR > 60 See Note
[2025-05-12 08:00] VITALS: BP 112/81; PULSE 78; RESP 19; TEMP 36.3; O2SAT 94
[2025-05-12] MEDS: ZINC SULFATE 220 MG CAPSULE PO (08:09)
[2025-05-12] MEDS: ASCORBIC ACID 250 MG TABLET 500 MG PO ×2 (08:09→20:48)
--- NOTE | 2025-05-12 09:03 | PC.SS ---
Chart accessed due to Julisa requesting additional documentation from weekend order
--- NOTE | 2025-05-12 11:33 | PC.SS ---
Isis Marcum is a 40 year-old female admitted to [facility] for Abscess in Buttock/I&D with [facility]. SS conducted bedside contact with the patient to complete initial assessment and to discuss discharge planning. Role and reason explained. Patient confirmed demographic information. Patient identifies Donnie Morejon [phone] as her surrogate decision maker. Pt states she is able to complete all ADL?s independently. No need for any source of DME. Pts PCP is Daphne Thibodeaux. Pharmacy of choice is [facility]. Discharge options discussed and the pt wishes to return home.? Family will provide transportation upon DC. No further intervention required at this time, hospital social worker would be available to address any further concerns. DC Plan: Home Contact: Address: Confirmed on face sheet PCP: Dr. Raman
--- NOTE | 2025-05-12 11:50 | PD.SURPROG ---
Documentation for date of: 05/12/25 Subjective Subjective Narrative: Patient is seen and examined. Her symptoms are improving Exam Vital Signs Temp Pulse Resp BP Pulse Ox O2 Del Method O2 Flow Rate 97.4 F 78 19 112/81 94 L Room Air 2 05/12/25 08:00 05/12/25 08:00 05/12/25 08:00 05/12/25 08:00 05/12/25 08:00 05/12/25 08:00 05/10/25 16:13 Constitutional Constitutional: no acute distress Routine Rectal Exam Comments: Left buttock cellulitis is improving. She still has significant amount of purulent drainage from the Assessment & Plan Assessment Additional comments: Postop day day #2 status post incision and drainage of left buttock abscess Plan She continues to have significant amount of purulent drainage from the wound, continue IV antibiotics. Wound care as directed. If drainage improves may discharge home tomorrow PROCEDURES: Procedures Incision and drainage of left buttock abscess
[2025-05-12 12:00] VITALS: BP 118/76; PULSE 92; RESP 18; TEMP 36.5; O2SAT 95
--- NOTE | 2025-05-12 13:28 | ESPR_ITS ---
<Statement entered by Eloy Crow MD - 05/12/25 15:38> Patient is seen and examined at bedside. No acute overnight events. Reported that she is having mild pain at the site of abscess drainage. Still noted to have continuous vaginal bleeding. General surgeon, Dr. Gupta is following the patient and recommended to keep patient for 1 more day and continue the IV antibiotics as the wound noted to have purulent drainage. Anticipate discharge in the next 24 to 48 hours. I have personally seen and examined the patient, agree with residents assessment and plan Patient plan of care was discussed with the attending physician, Dr. Napoleon Crow, PGY2 Documentation for date of: 05/12/25 Subjective Subjective Interval history: Patient seen and examined at bedside. No overnight events. She reports improving pain at the left buttock wound site. Denies fevers, chills, nausea, vomiting, abdominal pain, chest pain, or shortness of breath. Mild ongoing vaginal bleeding but unchanged from yesterday. Tolerating Regular Diet. General Surgery evaluated today and notes persistent significant purulent drainage from the wound. Based on this, they recommend continuing IV antibiotics and keeping patient admitted for another day. If drainage improves by tomorrow, she may be considered for discharge. Exam Vital Signs Temp Pulse Resp BP Pulse Ox O2 Del Method O2 Flow Rate 97.7 F 92 18 118/76 95 Room Air 2 05/12/25 12:00 05/12/25 12:00 05/12/25 12:00 05/12/25 12:00 05/12/25 12:00 05/12/25 12:00 05/10/25 16:13 Narrative Exam General: Alert, oriented, in NAD. HEENT: MMM, anicteric. Heart: Regular rate regular rhythm, no murmurs. Lungs: Clear to auscultation bilaterally. Abdomen: Soft, NT/ND. Back/Buttock: Left buttock wound with dressing in place; no bleeding through dressing; persistent drainage noted on dressing changes as per surgical team. Ext: No edema. Neuro: No focal deficits. Skin: Warm, dry. Objective Labs 05/12/25 04:20 05/12/25 04:20 Labs: Laboratory Results - last 24 hr 05/12/25 04:20 WBC 8.2 D RBC 3.14 L Hgb 9.5 L Hct 30.2 L MCV 96 MCH 30.3 MCHC 31.5 RDW Std Deviation 48.9 H Plt Count 465 H D Neut % (Auto) 73 Lymph % (Auto) 19 [place] % (Auto) 6 Eos % (Auto) 2 Baso % (Auto) 0 Neut # (Auto) 6.0 Lymph # (Auto) 1.5 [place] # (Auto) 0.5 Eos # (Auto) 0.2 Baso # (Auto) 0.0 Immature Gran # (Auto) 0.06 H Absolute Nucleated RBC 0.00 Immature Gran % 1 H Nucleated RBC % 0 Sodium 143 Potassium 3.8 Chloride 106 Carbon Dioxide 28.4 Anion Gap 9 BUN 9 Creatinine 0.8 Estim Creat Clear Calc 93.2 eGFR > 60 BUN/Creatinine Ratio 11 L Glucose [address] Glu mg/dL 108 Hemoglobin A1c 5.4 Calculated Osmolality 283 Calcium 8.6 Quality Measures Quality Measures VTE prophylaxis Assessment & Plan Assessment Current Active Medications: Generic Name Dose Route Start Last Admin Trade Name Freq PRN Reason Stop Dose Admin Acetaminophen 650 mg 05/10/25 12:12 Acetaminophen 325 Mg Tablet PO 06/09/25 12:11 Q6H PRN Fever >100.4 or pain Protocol Hydrocodone Bitart/Acetaminophen 1 tab 05/10/25 16:38 05/11/25 12:04 Hydrocodone/Apap 5/325 Tablet PO 05/15/25 16:37 1 tab Q6HR PRN Administration PAIN SCALE 4-10(Mod-Sev Ascorbic Acid 500 mg 05/10/25 21:00 05/12/25 08:09 Ascorbic Acid 250 Mg Tablet PO 06/09/25 20:59 500 mg BID SUPA Administration Piperacillin/Tazobactam/Dextrose 3.375 gm in 50 mls @ 12.5 mls/hr 05/10/25 22:00 05/12/25 05:33 Zosyn IV 05/17/25 21:59 12.5 mls/hr Q8HR SUPA Administration Protocol Morphine Sulfate 3 mg 05/10/25 16:38 Morphine Sulf Inj 4 Mg/Ml Vial IVP 05/15/25 16:37 Q2H PRN PAIN SCALE 7-10 (Severe Ondansetron HCl 4 mg 05/10/25 12:12 05/11/25 10:05 Ondansetron Inj 2 Mg/Ml Inj 2 Ml IVP 06/09/25 12:11 4 mg Q6H PRN Administration NAUSEA OR VOMITING Protocol Zinc Sulfate 220 mg 05/11/25 09:00 05/12/25 08:09 Zinc Sulfate 220 Mg Capsule PO 06/10/25 08:59 220 mg QDAY SUPA Administration Plan 44-year-old female, POD #2 from I&D of large left-buttock abscess, with ongoing significant wound drainage. WBC improved and patient clinically stable. Surgery recommends continuing IV Zosyn and inpatient monitoring for at least one more day. Abnormal uterine bleeding stable. Hgb stable. No new complaints. # Left buttock cellulitis with abscess ? POD#2 s/p I&D (05/10) Persistent significant drainage noted today by surgery. WBC improved. Blood cultures negative. Wound culture prelim GPC. Plan: * Continue Zosyn 3.375 mg IV q8h * Continue inpatient care another day per surgery * Wound care per surgery * Continue zinc sulfate 220 mg PO daily * Continue ascorbic acid 500 mg PO BID * Pain control * Follow wound culture final * If drainage improves by tomorrow -> potential discharge # Abnormal uterine bleeding Persistent since 04/27; mildly improving per patient; TVUS negative. Plan: * Trend CBC daily * Monitor pad counts * Reinforce need for outpatient OBGYN follow-up * If worsening, consider inpatient CUT ROLL MACHINE OPERATOR consult # Post-op anemia Hgb 9.5 today (down from baseline but stable). Plan: * Daily CBC * Transfuse only if symptomatic/ <7 # Hematuria Likely contamination from vaginal bleeding. Plan: * Consider repeating UA after bleeding subsides * Monitor renal function # Chronic back pain No red flags. Plan: * Pain management * Avoid IM injections to buttock regions going forward # Hypertension Home regimen unclear; patient unsure. Plan: * Complete medication reconciliation * Restart home meds as appropriate * Monitor BP Health Maintenance: Disposition: Continue inpatient care; cannot discharge today due to persistent wound drainage. Possible discharge tomorrow if improved. Diet: Regular. DVT Prophylaxis: SCDs. GI Prophylaxis: Not indicated. Code Status: Full Code. ----- Plan discussed with attending physician Dr. Bender and senior resident Dr. Mignon Salomon MD PGY-1 Internal Medicine Attending Provider Attestation/Addendum I have examined the patient, reviewed labs and imaging findings, discussed the case with the resident(s), and reviewed entered orders. I agree with the plan of care as outlined in this note, with these additional summaries/recommendations: Patient is a 40-year-old female with a medical history of chronic lower back pain presents to [facility] emergency department on 05/10/2025 with chief complaint of left buttock pain and vaginal bleeding. In the emergency room patient underwent soft tissue ultrasound which revealed large soft tissue mass with indistinct margins left lower back 14.8 X4.9X 7.0 cm abscess with contaminant cellulitis. Blood cultures taken and blood cultures preliminarily show no growth at 48 hours. General surgery was consulted and patient is POD #2 s/p incision and drainage of left buttock abscess. Continue pain management and wound care. Intraoperative wound culture Gram stain showing GPC and abscess plus anaerobic culture pending at this time. Patient underwent transvaginal ultrasound for menorrhagia which was negative and no endometrial thickening noted. We will continue to monitor and if worsens we will consider inpatient gynecology consult although patient can likely follow-up outpatient. Patient updated on the plan and agreement. All questions answered to satisfaction. Please see residents note for additional details and management. Dr. Napoleon MD
--- NOTE | 2025-05-12 13:53 | PC.SS ---
Rounding: Poss DC home today pending Dr. Gupta reccs/clearance
[2025-05-12 16:00] VITALS: BP 136/99; PULSE 104; RESP 18; TEMP 36.3; O2SAT 96
[2025-05-12 19:52] VITALS: BP 134/84; PULSE 82; RESP 17; TEMP 36.7; O2SAT 98
[2025-05-13] VITALS: BP 117/71; PULSE 76; RESP 16; TEMP 37; O2SAT 98
[2025-05-13 04:00] VITALS: BP 108/73; PULSE 80; RESP 17; TEMP 36.4; O2SAT 98
[2025-05-13] MEDS: PIPER/TAZO 3.375 GM PREMIX 3.375 GM/50 ML BAG IV (05:24)
[2025-05-13 05:58] LABS: Basophils # (Auto) 0.0 Thou/mm3 (0.0-0.2); Basophils % (Auto) 0 % (0-2.5); Eosinophils # (Auto) 0.3 Thou/mm3 (0.0-0.5); Eosinophils % (Auto) 3 % (0-10); Hematocrit 31.2 % (36.0-46.0); Hemoglobin 9.8 g/dL (12.0-16.0); Immature Granulocytes Auto 0.07 Thou/mm3 (0.00-0.00); Lymphocytes # (Auto) 2.0 Thou/mm3 (1.0-4.8); Lymphocytes % (Auto) 23 % (10-50); Mean Corpuscular HGB Conc 31.4 g/dl (31.0-37.0); Mean Corpuscular Hemoglobin 30.2 pg (25.0-35.0); Mean Corpuscular Volume 96 fL (80-100); Monocytes # (Auto) 0.6 Thou/mm3 (0.0-0.8); Monocytes % (Auto) 7 % (0-12); Neutrophils # (Auto) 5.5 Thou/mm3 (1.8-7.7); Neutrophils % (Auto) 66 % (37-80); Nucleated Red Blood Cell # 0.00 Thou/mm3 (0.00-0.00); Nucleated Red Blood Cell % 0 /100 WBC (0); Platelet Count 458 Thou/mm3 (140-440); RDW Standard Deviation 47.4 fL (36.4-46.3); Red Blood Count 3.25 Miln/mm3 (4.00-5.20); White Blood Count 8.3 Thou/mm3 (3.6-11.0)
[2025-05-13 06:11] LABS: Anion Gap 9 (7-16); BUN/Creatinine Ratio 11 Ratio (12-20); Blood Urea Nitrogen 8 mg/dL (9-23); Calcium 8.7 mg/dL (8.3-10.6); Carbon Dioxide 28.1 mMol/L (20.0-31.0); Chloride 106 mMol/L (98-107); Creatinine (Component) 0.7 mg/dL (0.6-1.3); Estimated Creatinine Clearance 106.5 mL/min (>60); Glucose 96 mg/dL (74-106); Osmolality,Calculated 283 (275-295); Potassium 4.1 mMol/L (3.4-5.1); Sodium 143 mMol/L (136-145); eGFR > 60 See Note
[2025-05-13 07:43] VITALS: BP 116/78; PULSE 68; RESP 16; TEMP 36.4; O2SAT 97
[2025-05-13] MEDS: ZINC SULFATE 220 MG CAPSULE PO (08:21)
[2025-05-13] MEDS: ASCORBIC ACID 250 MG TABLET 500 MG PO (08:21)
--- NOTE | 2025-05-13 09:37 | PD.SURPROG ---
Documentation for date of: 05/13/25 Subjective Subjective Narrative: Patient seen and examined. She is feeling much better Exam Vital Signs Temp Pulse Resp BP Pulse Ox O2 Del Method O2 Flow Rate 97.5 F 68 16 116/78 97 Room Air 2 05/13/25 07:43 05/13/25 07:43 05/13/25 07:43 05/13/25 07:43 05/13/25 07:43 05/13/25 07:43 05/10/25 16:13 Constitutional Constitutional: no acute distress Routine Rectal Exam Comments: Significant improvement of cellulitis. She still has some purulent drainage but significantly improved Assessment & Plan Assessment Additional comments: Postop day #3 status post incision and drainage of left buttock abscess Plan May discharg home, follow-up with wound clinic. Discharge on oral antibiotic (Keflex) for 10 days. PROCEDURES: Procedures Incision and drainage of left buttock abscess
[2025-05-13] MEDS: ONDANSETRON INJ 2 MG/ML INJ 2 ML 4 MG IVP (10:29)
[2025-05-13 12:00] VITALS: BP 124/83; PULSE 80; RESP 16; TEMP 36.3; O2SAT 96
--- NOTE | 2025-05-13 15:42 | ESDS_ITS ---
Planned Discharge Date 05/13/25 DS: Providers Provider Date of admission: 05/10/25 12:12 Primary care physician: Daphne Noriega PA-C Admitting Provider: Wander Bender MD Attending Provider on Admission: Wander Bender MD Consults: 05/12/25 14:08 Referral OP Wound Healing Dept Routine Comment: Instructions: Left buttocks abscess s/p surgical I&D 05/[address] Gupta 05/12/25 14:10 Referral Nutritional Services Routine Comment: Left buttocks abscess Referral Wound Care Routine Comment: Left buttocks abscess Attending Provider on DC: Chris Hassan MD Discharging Provider: Ashley Salomon MD DS: Diagnosis Problem List Completed Was Problem List Reviewed/Reconciled?: Yes Hospital Course Hospital Course Hospital course: The patient is a 44-year-old female with chronic back pain and a history of a prior left-buttock abscess (spontaneously drained 2 years ago). She presented on 05/10/2025 with persistent vaginal bleeding and severe left-buttock pain, which had been worsening for 1 month. Imaging (CT and soft tissue ultrasound) revealed a 14.8 ? 4.9 ? 7.0 cm soft tissue mass consistent with cellulitis/abscess. She was taken to the operating room on 05/10/2025 for incision and drainage (I&D). A significant amount of purulent drainage was removed. She was started on IV Zosyn, zinc sulfate, and vitamin C for wound healing. Postoperatively, she had mild ongoing vaginal bleeding, which was stable, and persistent drainage from the wound for the first 2 days. Her WBC improved, and drainage decreased, with a stable hemoglobin of 9.8 on discharge. Blood cultures were negative. Wound culture grew Staph aureus, with no MRSA. The patient was discharged on Keflex 500 mg PO QID for 5 days to complete her antibiotic course. She was counseled on wound care, and follow-up appointments with General Surgery for wound assessment and OBGYN for abnormal uterine bleeding were arranged. Diagnosis during admission: # Left buttock cellulitis with abscess ? s/p I&D (05/10) # Abnormal uterine bleeding # Post-op anemia # Hematuria # Chronic back pain # Hypertension Discharge instructions: ? Start cephalexin (Keflex) 500 mg; take 1 capsule by mouth 4 times daily for 5 more days. ? Continue zinc sulfate to 20 mg daily, helps with wound healing. ? Continue vitamin C 500 mg twice daily, also helps with healing. ? Continue your regular home medications as prescribed. ? Follow-up with general surgery within 1 week for wound check. ? Follow-up with TAPE CONTROL SKIN OR SPAR MILL OPERATOR for evaluation of abnormal uterine bleeding. Bring your ultrasound results to the appointment. ? Follow-up with primary care physician within 1 to 2 weeks. 1) Follow up at [facility] for care to your wound. [address] [place] Call [phone] for appointment. 2) Shower once a day. You can remove packing and shower than repack your wound afterwards. 3) Wound care to left buttocks; -Wash hands with soap and water -Remove old dressing including strip packing -Irrigate well with Normal saline, express drainage and pat dry with gauze. - Wash hands again or change your gloves -Pack wound to the deepest portion of wound and keep packing until cavity is filled -Cover with dry gauze and secure with tape. -Change once a day and as needed for falling off or soiling with urine or feces If active bleeding occurs, apply tight dressing and return to MD or ER. ? Notify primary doctor or return to Emergency Room if any of the following: ? Fever above 100.6? F. ? Increased pain ? Increase swelling ? Red streaks around your wound ? Drainage becomes foul smelling or changes color ? The wound is larger or deeper ? The wound looks dried out or dark ? Bleeding that does not stop with holding pressure ----- Plan discussed with attending physician Dr. Mo Salomon MD PGY-1 Internal Medicine Time Spent with Patient Time attestation: Total time spent providing and/or coordinating discharge services: Time spent: Greater than 30 minutes Exam Vital Signs Temp Pulse Resp BP Pulse Ox O2 Del Method O2 Flow Rate 97.3 F 80 16 124/83 96 Room Air 2 05/13/25 12:00 05/13/25 12:00 05/13/25 12:00 05/13/25 12:00 05/13/25 12:00 05/13/25 12:00 05/10/25 16:13 Narrative Exam General: Alert, oriented, in NAD. HEENT: MMM, anicteric. Heart: Regular rate regular rhythm, no murmurs. Lungs: Clear to auscultation bilaterally. Abdomen: Soft, NT/ND. Back/Buttock: Left buttock wound with dressing in place; no bleeding through dressing; no drainage noted. Ext: No edema. Neuro: No focal deficits. Skin: Warm, dry. Discharge Plan Plan Patient Disposition: HOME (Self Care) Patient condition on transfer: Stable Care Plan Goals: Discharge instructions: ? Start cephalexin (Keflex) 500 mg; take 1 capsule by mouth 4 times daily for 5 more days. ? Continue zinc sulfate to 20 mg daily, helps with wound healing. ? Continue vitamin C 500 mg twice daily, also helps with healing. ? Continue your regular home medications as prescribed. ? Follow-up with general surgery within 1 week for wound check. ? Follow-up with TAPE CONTROL SKIN OR SPAR MILL OPERATOR for evaluation of abnormal uterine bleeding. Bring your ultrasound results to the appointment. ? Follow-up with primary care physician within 1 to 2 weeks. 1) Follow up at [facility] for care to your wound. [address] [place] [address]. Call [phone] for appointment. 2) Shower once a day. You can remove packing and shower than repack your wound afterwards. 3) Wound care to left buttocks; -Wash hands with soap and water -Remove old dressing including strip packing -Irrigate well with Normal saline, express drainage and pat dry with gauze. - Wash hands again or change your gloves -Pack wound to the deepest portion of wound and keep packing until cavity is filled -Cover with dry gauze and secure with tape. -Change once a day and as needed for falling off or soiling with urine or feces If active bleeding occurs, apply tight dressing and return to MD or ER. ? Notify primary doctor or return to Emergency Room if any of the following: ? Fever above 100.6? F. ? Increased pain ? Increase swelling ? Red streaks around your wound ? Drainage becomes foul smelling or changes color ? The wound is larger or deeper ? The wound looks dried out or dark ? Bleeding that does not stop with holding pressure Prescriptions/Referrals Prescriptions/Med Rec: New cephalexin 500 mg capsule 500 mg PO QID 5 Days Qty: 20 0RF zinc acetate 25 mg (zinc) capsule 25 mg PO QDAY Qty: 15 0RF ascorbic acid (vitamin C) [Vitamin C] 500 mg tablet 500 mg PO BID Qty: 30 0RF Continued tramadol 50 mg tablet 50 mg PO Q12HR PRN (Reason: pain) ibuprofen 600 mg tablet 600 mg PO Q6H PRN (Reason: pain) Qty: 30 0RF lidocaine 5 % adhesive patch,medicated 1 patch topical QDAY PRN (Reason: pain) Qty: 15 0RF Rx Instructions: leave on most painful area for up to 12 hrs Held lisinopril-hydrochlorothiazide 10-12.5 mg tablet 1 tab PO QDAY Hold Instructions: Resume on 05/27/25. Hold till u see PCP Referrals: Daphne Noriega PA-C [Primary Care Provider] Patient/Caregiver Discharge Instructions Education Materials: Nutrition for Wound Healing, Abscess Drainage, Discharge Instructions Wound ..., Preventing Surgical Site Infections Print Language: Bahamian Stand Alone Forms: Radha Award Info., Patient Portal Info Letter Discharge Order Discharge Orders: Discharge (Routine); Ordered 05/13/25 Ordered By: Eloy Crow Quality Discharge Quality Measures VTE prophylaxis Attestestation MD Attestation I have discussed and was present for the essential components of the discharge history, physical examination, diagnosis, and discharge treatment plan with the resident. I agree with the patient's discharge care as documented by the resident and amended herein by me. Jose Hassan DO. The patient understood all discharge instructions, all questions were answered satisfactorily. The patient was instructed to return to the Emergency Department is symptoms worsened or persisted. Minimal drainage from I&D site on buttocks at time of discharge, patient will be discharged with a course of Keflex, see resident note above for additional details, patient was stable, afebrile, tolerating p.o. intake and ambulatory at time of discharge home. Although this document has been carefully reviewed, there may still be some phonetic and other typographical errors. These errors are purely grammatical due to imperfections in the software program and should not be construed in any way to compromise the substance of the patient's medical care during this visit.
== END 2025-05-13 14:00 | disposition home or self-care (01) | DRG 364 ==
LOC: SERX 12:02 → SERHOLD 14:15 → S3SX 14:47 → SERHOLD 05-11 08:40 → S3SX 05-11 08:40
PROVIDERS: Physician Assistant; Surgery; Admitting Provider Student in an Organized Health Care Education/Training Program; Emergency Provider Family Medicine; PCP Specialist; Visit Provider Student in an Organized Health Care Education/Training Program
DX: L02.31 Cutaneous abscess of buttock (principal); N92.0 Excessive and frequent menstruation with regular cycle; M54.9 Dorsalgia, unspecified; G89.29 Other chronic pain; D64.9 Anemia, unspecified; I10 Essential (primary) hypertension; L03.317 Cellulitis of buttock; R31.9 Hematuria, unspecified
CPT/HCPCS: 36415; 74176; 76705; 76830; 80048; 80053; 81001; 83036; 83605; 83690; 83735; 84100; 84703; 85025; 85610; 85730; 87040; 87070; 87075; 87077; 87186; 87205; 93005; 96365; 96366; 96372; 96374; 99284; A4217; A4649; J0131; J0736; J1100; J1885; J2250; J2405; J2543; J2704; J3010; J3373; J3490; A9270

== ENCOUNTER 2025-05-17 10:45 | Emergency (ER) | payer MEDICAID, SELFPAY ==
[2025-05-17 11:00] VITALS: BP 141/102; PULSE 99; RESP 17; TEMP 36.9; O2SAT 99; BMI 36.2
--- NOTE | 2025-05-17 11:23 | EDNOTE_ITS ---
ED Wound/Laceration-RME/HPI General Chief Complaint: Wound/Laceration Stated Complaint: needs dressing changed to abscess to left buttock Time Seen by Provider: 05/17/25 10:52 Arrival date/time: 05/17/25 10:45 40-year-old female presents to the emergency department for 2 separate complaints first complaint is a rash and the other complaint is that she has packing in place for an abscess which she needs to be replaced. Patient reports she typically goes to her PCP but they are closed on the weekends Limitations: no limitations Related Data Home Medications ?Medication ?Instructions ?Recorded ?Confirmed lisinopril 10 1 tab PO QDAY 05/11/2505/11 mg-hydrochlorothiazide 12.5 mg tablet Held on 05/13/25. Instructions: Resume on 05/27/25. Hold till u see PCP tramadol 50 mg PO Q12HR PRN pain 04/2605/11/25 Previous Rx's ?Medication ?Instructions ?Recorded ibuprofen 600 mg tablet 600 mg PO Q6H PRN pain #30 t abs 04/01/25 lidocaine 5 % topical patch 1 patch topical QDAY PRN p ain #15 04/01/25 ea ascorbic acid (vitamin C) 500 mg 500 mg PO BID #30 tab s 05/13/25 tablet (Vitamin C) cephalexin 500 mg capsule 500 mg PO QID 5 days #20 cap s 05/13/25 zinc acetate 25 mg (zinc) capsule 25 mg PO QDAY #15 ca ps 05/13/25 prednisone 10 mg tablet 30 mg (3 x 10 mg) PO BID 3 d ays 05/17/25 #18 tabs Allergies Allergy/AdvReac Type Severity Reaction Status Date / Time No Known Allergies Allergy Verified 05/17/25 10:49 Review of Systems Review of Systems Systems Reviewed: All systems reviewed, normal except as documented Constitutional Constitutional: Reports system reviewed and no additional complaints, except as documented, Denies fever(s) and Denies headache(s) Eyes Eyes: Reports system reviewed and no additional complaints, except as documented and Denies blurry vision ENT Ears, Nose, Mouth, and Throat: Reports system reviewed and no additional complai nts, except as documented, Denies headache(s), Denies nasal congestion and Denies nasal discharge Cardiovascular Cardiovascular: Reports system reviewed and no additional complaints, except as documented, Denies chest pain and Denies dyspnea Respiratory Respiratory: Reports system reviewed and no additional complaints, except as documented, Denies chest congestion, Denies cough and Denies dyspnea Gastrointestinal Gastrointestinal: Reports system reviewed and no additional complaints, except as documented and Denies abdominal pain Integumentary/Breasts Skin/Breast: Reports system reviewed and no additional complaints, except as documented, Denies rash and Reports wounds (Abscess, packing in place left buttock) Neurologic Neurologic: Reports system reviewed and no additional complaints, except as documented, Reports as per HPI and Denies headache(s) Past Medical History Past Medical History NEUROLOGIC: Negative Neurological Disorders CARDIAC: Positive Cardiac Disorders, Hypercholesterolemia and Hypertension; Negative Congestive Heart Failure RESPIRATORY: Negative Chronic Obstructive Pulmonary Disease (COPD) GASTROINTESTINAL: Positive Obesity; Negative Gastrointestinal Disorders GENITOURINARY: Negative Genitourinary Disorders or Renal Disease REPRODUCTIVE: Positive Previous Pregnancies MUSCULOSKELETAL: Positive Musculoskeletal Disorders, Arthritis and Degenerative Disk Disease ENDOCRINE: Negative Endocrine Disorders, Diabetes Mellitus Type 1 or Diabetes Mellitus Type 2 HEMATOLOGIC: Positive Blood Disorders and Anemia OTHER HISTORY: Negative Autoimmune Disease Family History FAMILY HISTORY: Negative Family Psychiatric Problems, Family Respiratory Disord ers, Family Cardiac Disorders, Family Gastrointestinal Problems, Family Cancer, Family Surgery or Family Anesthesia Reaction Social History SMOKING STATUS: Never smoker SUBSTANCE USE: does not use ED Exam General Limitations: Present no limitations General appearance: Present alert and in no apparent distress Head Head exam: Present atraumatic Eye Eye exam: Present normal appearance, PERRL and EOMI ENT ENT exam: Present normal exam, normal oropharynx and mucous membranes moist Neck Neck exam: Present normal inspection, full ROM and trachea midline Chest Chest inspection: Present normal inspection and symmetric chest wall rise Respiratory Respiratory exam: Present normal lung sounds bilaterally Cardiovascular Cardiovascular exam: Present regular rate, normal rhythm and normal heart sounds Abdominal Exam Abdominal exam: Present soft and normal bowel sounds Extremities Exam Extremities exam: Present normal inspection and full ROM Back Exam Back exam: Present normal inspection and full ROM Neurological Exam Neurological exam: Present alert, oriented X3 and CN II-XII intact Psychiatric Psychiatric exam: Present normal affect and normal mood Skin Skin exam: Present warm, dry and rash (Generalized rash) Course Quality Measures none Orders Category Date Time Status Wound Care NOW Care 05/17/25 11:25 Active Dexamethasone Inj [Decadron Inj] Med 05/17/25 11:25 Discontinued 10 mg IM X1 ONE DiphenhydrAMINE [Benadryl] Med 05/17/25 11:25 Discontinued 25 mg PO X1 ONE Vital Signs Vital signs: Vital Signs Temperature 98.4 F 05/17/25 11:00 Pulse Rate 99 05/17/25 11:00 Respiratory Rate 17 05/17/25 11:00 Blood Pressure 141/102 H 05/17/25 11:00 Pulse Oximetry (%) 99 05/17/25 11:00 Oxygen Delivery Method Room Air 05/17/25 11:00 O2 saturation 9 9% room air within normal limits Wound / Laceration MDM Narrative MDM Narrative:: 40-year-old female presents to the emergency department for 2 separate complaints first complaint is a rash and the other complaint is that she has packing in place for an abscess which she needs to be replaced. Patient reports she typically goes to her PCP but they are closed on the weekends On exam patient well-appearing does not appear look toxic no acute distress On exam patient packing in place left buttock no evidence of abscess at this time Packing is removed in's entirety and is replaced Patient has a rash consistent with allergic reaction most likely secondary to the antibiotic she is on Patient reports her antibiotic was changed Patient given dexamethasone and Benadryl here Patient discharged home with steroids and Benadryl Patient discharged home in no distress to follow-up with primary care doctor in the next 24 to 48 hours and for any worsening symptoms to return to the ER immediately Patient data External records reviewed:: [facility] previous records Clinical information provided by:: patient Social determinants that could affect healthcare access:: none Patient has the following chronic illnesses:: See history How is presenting disease/condition affected by chronic disease/condition?: caused by Evaluation data The following diagnostics were reviewed and interpreted by me:: other (specify) (N/A) Lab and/or radiology exams considered but not ordered:: Considered not ordered Interpretation Summary: N/A Medications / Prescriptions Medications or Prescriptions considered but not ordered:: Given Medication administrations:: Medication Administration History Discontinued Medications Dexamethasone Sodium Phosphate (Dexamethasone Sod Phos Inj 10 Mg/Ml Vial) 10 mg IM X1 ONE Stop: 05/17/25 11:26 Diphenhydramine HCl (Diphenhydramine 25 Mg Capsule) 25 mg PO X1 ONE Stop: 05/17/25 11:26 Given Consultations Consultation(s) initiated? (list below): No Diagnosis Wound Differential Diagnosis: laceration, abscess and abrasion Most likely diagnosis given after review of the tests above:: Abscess with packing in place Admission Indicated Admission indicated?: not indicated Admission Request Was there a request for admission?: No Disposition Plan Disposition Plan: Discharge Discharge Attestation Discharge Attestation: The patient and all family members were given an opportunity to ask questions and understood the discharge instructions. Discharge instructions specifically effects, indications for sooner follow up or return to the emergency department, and the expected course of current diagnosis. Patient condition: Stable Discharge Plan Plan Patient Disposition: HOME (Self Care) Discharge Disposition comment: Stable Prescriptions/Referrals Prescriptions/Med Rec: New prednisone 10 mg tablet 30 mg PO BID 3 Days Qty: 18 0RF No Action lisinopril-hydrochlorothiazide 10-12.5 mg tablet 1 tab PO QDAY tramadol 50 mg tablet 50 mg PO Q12HR PRN (Reason: pain) cephalexin 500 mg capsule 500 mg PO QID 5 Days Qty: 20 0RF zinc acetate 25 mg (zinc) capsule 25 mg PO QDAY Qty: 15 0RF ascorbic acid (vitamin C) [Vitamin C] 500 mg tablet 500 mg PO BID Qty: 30 0RF ibuprofen 600 mg tablet 600 mg PO Q6H PRN (Reason: pain) Qty: 30 0RF lidocaine 5 % adhesive patch,medicated 1 patch topical QDAY PRN (Reason: pain) Qty: 15 0RF Rx Instructions: leave on most painful area for up to 12 hrs Problem List Clinical Impression: Allergic reaction, Encounter for wound re-check Patient/Caregiver Discharge Instructions Additional Instructions: Please follow up with your primary care doctor in the next 24-48hrs for any worsening symptoms return here immediately Print Language: Kinyarwanda Stand Alone Forms: Radha Award Info., Patient Portal Info Letter PA/REIMBURSEMENT MANAGER Supervising Physician PA/REIMBURSEMENT MANAGER Supervising Physician: Dr. lopez
[2025-05-17] MEDS: DEXAMETHASONE SOD PHOS INJ 10 MG/ML VIAL IM (11:38)
== END 2025-05-17 11:48 | disposition home or self-care (01) ==
LOC: SERX 11:53
PROVIDERS: Emergency Provider Nurse Practitioner Primary Care; PCP Physician Assistant
DX: Z48.00 Encounter for change or removal of nonsurgical wound dressing (principal)
CPT/HCPCS: 96372; 99282; J1100; A9270

== ENCOUNTER → 2025-05-19 | Outpatient (CLI) | payer MEDICAID, SELFPAY | END | disposition home or self-care (01) | PROVIDERS: PCP Physician Assistant; Referring Provider Physician Assistant; Visit Provider Student in an Organized Health Care Education/Training Program | DX: S31.829A Unspecified open wound of left buttock, initial encounter (principal); X58.XXXA Exposure to other specified factors, initial encounter; L02.31 Cutaneous abscess of buttock; I10 Essential (primary) hypertension; D64.9 Anemia, unspecified | CPT/HCPCS: 99214; A9270; G0463 ==

== ENCOUNTER 2025-05-23 23:01 | Emergency (ER) | payer MEDICAID, SELFPAY ==
--- NOTE | 2025-05-23 23:29 | EDNOTE_ITS ---
ED Abdominal Pain RME/HPI General Chief Complaint: Abdominal Pain Stated complaint: LEFT LOWER ABD PAIN, NO BM 3 DAYS Time seen by provider: 05/23/25 23:55 Arrival date/time: 05/23/25 23:01 RME / HPI RME / HPI narrative: See [facility] for Dr. Wiggins's HPI Documentation. Related Data Home Medications ?Medication ?Instructions ?Recorded ?Confirmed lisinopril 10 1 tab PO QDAY 05/11/2505/11 mg-hydrochlorothiazide 12.5 mg tablet Held on 05/13/25. Instructions: Resume on 05/27/25. Hold till u see PCP tramadol 50 mg PO Q12HR PRN pain 04/2605/11/25 Previous Rx's ?Medication ?Instructions ?Recorded ibuprofen 600 mg tablet 600 mg PO Q6H PRN pain #30 t abs 04/01/25 lidocaine 5 % topical patch 1 patch topical QDAY PRN p ain #15 04/01/25 ea ascorbic acid (vitamin C) 500 mg 500 mg PO BID #30 tab s 05/13/25 tablet (Vitamin C) zinc acetate 25 mg (zinc) capsule 25 mg PO QDAY #15 ca ps 05/13/25 magnesium hydroxide 2,400 mg/10 mL 30 ml PO QDAY PRN c onstipation #60 05/24/25 oral suspension (Milk Of Magnesia mL Concentrated) Allergies Allergy/AdvReac Type Severity Reaction Status Date / Time No Known Allergies Allergy Verified 05/23/25 23:02 Review of Systems Review of Systems Systems Reviewed: All systems reviewed, normal except as documented Past Medical History Past Medical History CARDIAC: Positive Cardiac Disorders, Hypercholesterolemia and Hypertension GASTROINTESTINAL: Positive Obesity REPRODUCTIVE: Positive Previous Pregnancies MUSCULOSKELETAL: Positive Musculoskeletal Disorders, Arthritis and Degenerative Disk Disease HEMATOLOGIC: Positive Blood Disorders and Anemia ED Exam Narrative Physical exam: See [facility] for Dr. Wiggins's Physical Exam Documentation. Course Quality Measures none Orders Category Date Time Status CT abdomen pelvis wo con Stat Exams 05/23/25 23:30 Completed US gall bladder Stat Exams 05/24/25 00:00 Completed US pelvic complete Stat Exams 05/24/25 00:00 Completed Amylase Stat Lab 05/23/25 00:26 Completed Bilirubin,Direct Stat Lab 05/23/25 00:26 Completed CBC Stat Lab 05/23/25 00:26 Completed CMP [Comprehensive Metabolic Panel] Stat Lab 05/23/25 00:26 Completed HCG,Qualitative Serum Stat Lab 05/23/25 00:26 Completed Lipase Stat Lab 05/23/25 00:26 Completed Magnesium Stat Lab 05/23/25 00:26 Completed UA, C/S IF [Urinalysis, C/S if Indicated] Stat Lab 05/24/25 02:30 Completed ACETAMINOPHEN w/COD 300-30 [Tylenol w/Cod #3] Med 05/23/25 23:29 Discontinued 2 tab PO X1 ONE Magnesium Citrate Liqd [Citrate of Magnesia Liqd] Med 05/24/25 03:22 Discontinued 300 ml PO X1 ONE Morphine* Inj Med 05/24/25 00:58 Discontinued 8 mg IM X1 ONE Ondansetron Odt [Zofran Odt] Med 05/23/25 23:29 Discontinued 4 mg PO X1 ONE Vital Signs Vital signs: Vital Signs Temperature 98.1 F 05/23/25 23:31 Pulse Rate 85 05/23/25 23:31 Respiratory Rate 20 05/23/25 23:31 Blood Pressure 148/95 H 05/23/25 23:31 Pulse Oximetry (%) 96 05/23/25 23:31 Oxygen Delivery Method Room Air 05/23/25 23:31 Abdominal Pain MDM MDM Narrative MDM Narrative:: This section includes all my notes and documentations, including HPI, PE, and ED course. Spike Wiggins MD HPI: 40 y/o female presents with lower abdominal tenderness for few days. Seems to be worse in the left side. Has nausea, no vomiting. No fever or chills. No urinary symptoms. No other complaints. ROS: All negative except as documented in HPI. Physical Exam: General: Alert and oriented. No acute distress when remaining still. Eyes: Conjunctivae and lids clear. ENT: No nasal congestion. Neck: Supple. Heart: RRR. Lungs: No respiratory distress. Good air movement. No rhonchi, wheezing, rales. Abdomen: Soft with left-sided tenderness, difficult to local. Normal bowel sounds. No distension. No rebound or guarding. Back: No CVA tenderness. Skin: Warm and dry. Neuro: Alert and oriented X 3. I reviewed all diagnostic test results: My review of the Abdomen/Pelvis CT report is constipation. My review of the Pelvis US report is: No acute findings. My review of the Gall Bladder US report is NAD. Blood tests and urine tests unremarkable. At this point, diagnoses include: Constipation Treatment here included: Two Tylenol #3 and Zofran ODT 4 mg prior to diagnostic tests (no improvement noted) Morphine 8 mg IM (she felt much better) Magnesium Citrate 300 mL for home Recommended a trial of conservative treatment. Based on my best medical judgment, made decision no further evaluation or treatment indicated at this time. Patient understands and agrees to the discharge instructions customized and printed, see below. Discharge instructions from Dr. Wiggins printed for you: ?After extensive evaluation, there is no emergency.? Such as appendicitis needing urgent surgery. -You have severe constipation. ? If magnesium citrate given here doesn't work. Take milk of of magnesia as prescribed. And take Senokot S (not plain Senokot, OTC so prescription not needed), four pills, at bedtime as needed.? May take a few days but this will help clear out your bowels. ?To help current constipation and prevent future constipation, increase oral fluid because dehydration cause severe constipation.? Maintain clear urine.? If dark or yellow, increase oral fluid. ?And every day, increase fresh fruits and fresh vegetables and physical exercise. ?See a private doctor on 05/26/2025. Ask for help until you are completely better. To make sure there is no serious underlying abdominal condition, ask to help you get more care not available here in the ER.? Such as EGD or scoping of your stomach, colonoscopy or scoping the colon, and a referral to see a manager assisted living. Ask to review all test results and official radiology reports, to make sure you receive all necessary follow-ups and monitoring. ?Seek immediate medical care with worsening or with any concerns. Spike Wiggins MD Patient data External records reviewed:: [facility] previous records (Reviewed prior ED records from 05/17/25. Patient was seen for Allergic reaction.) Clinical information provided by:: patient Social determinants that could affect healthcare access:: none Patient has the following chronic illnesses:: Hypercholesterolemia, Hypertension, Obesity, Arthritis, Degenerative Disk Disease, Anemia How is presenting disease/condition affected by chronic disease/condition?: exacerbated by Evaluation data The following diagnostics were reviewed and interpreted by me:: lab results and radiology exam(s) Lab and/or radiology exams considered but not ordered:: None Interpretation Summary: I reviewed all diagnostic test results: My review of the Abdomen/Pelvis CT report is constipation. My review of the Pelvis US report is: No acute findings. My review of the Gall Bladder US report is NAD. Blood tests and urine tests unremarkable. Medications / Prescriptions Medications or Prescriptions considered but not ordered:: None Medication administrations:: Medication Administration History Discontinued Medications Acetaminophen/Codeine Phosphate (Acetaminophen W/Cod 300-30 Tablet) 2 tab PO X1 ONE Stop: 05/23/25 23:30 Last Admin: 05/23/25 23:33 Dose: 2 tab Documented By: DEDRICK Magnesium Citrate (Magnesium Citrate 300 Ml Btl) 300 ml PO X1 ONE Stop: 05/24/25 03:23 Last Admin: 05/24/25 03:27 Dose: 300 ml Documented By: DEDRICK Comments: medication wont scan Morphine Sulfate (Morphine Sulf Inj 4 Mg/Ml Vial) 8 mg IM X1 ONE Stop: 05/24/25 00:59 Last Admin: 05/24/25 01:18 Dose: 8 mg Documented By: DEDRICK Ondansetron HCl (Ondansetron Odt 4 Mg Tabrap) 4 mg PO X1 ONE; Protocol Stop: 05/23/25 23:30 Last Admin: 05/23/25 23:34 Dose: 4 mg Documented By: DEDRICK Treatment here included: Two Tylenol #3 and Zofran ODT 4 mg prior to diagnostic tests (no improvement noted) Morphine 8 mg IM (she felt much better) Magnesium Citrate 300 mL for home Consultations Consultation(s) initiated? (list below): No Diagnosis Differential diagnosis abdominal pain: acute appendicitis, calculus of kidney, constipation, diverticulitis, endometriosis, gastroenteritis, pancreatitis and small bowel obstruction Most likely diagnosis given after review of the tests above:: Constipation Admission Indicated Admission indicated?: not indicated Explain why admission is indicated or not indicated:: With significant improvement and no condition needing emergent intervention, there was no indication for admission. Admission Request Was there a request for admission?: No Disposition Plan Disposition Plan: Discharge Discharge Attestation Discharge Attestation: The patient and all family members were given an opportunity to ask questions and understood the discharge instructions. Discharge instructions specifically effects, indications for sooner follow up or return to the emergency department, and the expected course of current diagnosis. Patient condition: Stable Discharge Plan Plan Patient Disposition: HOME (Self Care) Prescriptions/Referrals Prescriptions/Med Rec: New magnesium hydroxide [Milk Of Magnesia Concentrated] 2,400 mg/10 mL suspension 30 ml PO QDAY PRN (Reason: constipation) Qty: 60 0RF No Action lisinopril-hydrochlorothiazide 10-12.5 mg tablet 1 tab PO QDAY tramadol 50 mg tablet 50 mg PO Q12HR PRN (Reason: pain) zinc acetate 25 mg (zinc) capsule 25 mg PO QDAY Qty: 15 0RF ascorbic acid (vitamin C) [Vitamin C] 500 mg tablet 500 mg PO BID Qty: 30 0RF ibuprofen 600 mg tablet 600 mg PO Q6H PRN (Reason: pain) Qty: 30 0RF lidocaine 5 % adhesive patch,medicated 1 patch topical QDAY PRN (Reason: pain) Qty: 15 0RF Rx Instructions: leave on most painful area for up to 12 hrs Problem List Clinical Impression: Constipation Patient/Caregiver Discharge Instructions Discharge Activity: activity as tolerated Education Materials: ED Constipation (Adult) Additional Instructions: Discharge instructions from Dr. Wiggins printed for you: ?After extensive evaluation, there is no emergency.? Such as appendicitis needing urgent surgery. -You have severe constipation. ? If magnesium citrate given here doesn't work. Take milk of of magnesia as prescribed. And take Senokot S (not plain Senokot, OTC so prescription not needed), four pills, at bedtime as needed.? May take a few days but this will help clear out your bowels. ?To help current constipation and prevent future constipation, increase oral fluid because dehydration cause severe constipation.? Maintain clear urine.? If dark or yellow, increase oral fluid. ?And every day, increase fresh fruits and fresh vegetables and physical exercise. ?See a private doctor on 05/26/2025. Ask for help until you are completely better. To make sure there is no serious underlying abdominal condition, ask to help you get more care not available here in the ER.? Such as EGD or scoping of your stomach, colonoscopy or scoping the colon, and a referral to see a manager assisted living. Ask to review all test results and official radiology reports, to make sure you receive all necessary follow-ups and monitoring. ?Seek immediate medical care with worsening or with any concerns. Instrucciones de betina del Dr. Wiggins impresas para usted: ?Tras candis evaluaci?n exhaustiva, no hay ninguna emergencia. Por ejemplo, apendicitis que requiera cirug?a urgente. ?Tiene estre?imiento jose. ?Si el citrato de magnesio administrado aqu? no funciona. [place] leche de magnesia seg?n lo recetado. Y tome Senokot S (no Senokot normal, de venta arabella, por lo que no se necesita receta), cuatro pastillas, al acostarse, seg?n sea necesario. Puede tardar unos d?as, selena esto le ayudar? a evacuar los intestinos. ?Para aliviar el estre?imiento actual y prevenir el estre?imiento futuro, aumente la ingesta de l?quidos, ya que la deshidrataci?n causa estre?imiento jose. Mantenga la [place]. Si est? oscura o amarilla, aumente la ingesta de l?quidos. ?Adem?s, aumente el consumo de frutas y verduras frescas y la actividad f?cosmo a diario. ?Consulte con un m?dico privado el [id number]. Solicite ayuda hasta que se recupere por completo. Para descartar cualquier afecci?n abdominal subyacente grave, solicite que le faciliten acceso a atenci?n m?dica adicional que no est? disponible aqu? en la kiera de emergencias. Por ejemplo, candis endoscopia digestiva betina (EGD) o candis colonoscopia, y candis derivaci?n a un gastroenter?logo. Solicite revisar todos los resultados de las pruebas e informes radiol?gicos oficiales para asegurarse de recibir todo el seguimiento y la monitorizaci?n necesarios. ?Busque atenci?n m?dica inmediata si pj s?ntomas empeoran o si tiene alguna inquietud. Print Language: Montenegrin Stand Alone Forms: Radha Award Info., Patient Portal Info Letter
--- NOTE | 2025-05-23 23:30 | XR_ITS ---
Examination: CT abdomen and pelvis without contrast. Coronal 3-D reconstructions. Sagittal 2-D reconstructions. Date and time of exam: May 24, 2025, 0131 hours INDICATIONS: Left lower abdominal pain beginning 3 days ago CTDI: vol (mGy): 12.11 DLP: (mGycm): 721 Technique: Axial images of the abdomen have been obtained, 3 mm slice thickness Intravenous contrast material has not been administered. Low dose protocols were performed. One or more of the following dose reduction techniques were used; automated exposure control, adjustment of the mA and/or KV according to patient size, use of iterative reconstruction technique. Findings: No visualized liver or splenic lesion No gallstones No pancreatic or adrenal mass No renal or ureteral calculi, no hydronephrosis Abundant stool throughout the entire colon especially rectosigmoid with mild thickening of the rectal wall Urinary bladder intact Minimal anterolisthesis L5 IMPRESSION: Large amount of stool throughout the entire colon
[2025-05-23 23:31] VITALS: BP 148/95; PULSE 85; RESP 20; TEMP 36.7; O2SAT 96
[2025-05-23] MEDS: ACETAMINOPHEN w/COD 300-30 TABLET 2 TAB PO (23:33)
[2025-05-23] MEDS: ONDANSETRON ODT 4 MG TABRAP PO (23:34)
--- NOTE | 2025-05-24 | XR_ITS ---
Examination: Pelvic ultrasound, transabdominal, complete Technique: Transabdominal ultrasound of the pelvis performed using grayscale imaging Date and time of exam: May 24, 2025, 0031 hours INDICATION: Pelvic pain beginning 3 days ago. FINDINGS: Uterus 9.6 cm endometrial stripe 0.5 cm No uterine mass or intrauterine gestation Right ovary 3.2 cm arterial flow Left ovary 2.6 cm arterial flow IMPRESSION: Negative study
--- NOTE | 2025-05-24 | XR_ITS ---
Examination: Abdomen sonogram, Limited Date and time of exam: May 24, 2025, 0027 hours INDICATIONS: Pelvic abdominal pain beginning 3 days ago Technique: Real-time min scale transabdominal sonographic images of the upper abdomen obtained. Findings: Normal gallbladder Normal common bile duct 0.3 cm Pancreatic head 3.0 cm Hepatomegaly 18.8 cm no liver lesions Normal hepatopetal portal venous flow Patent IVC IMPRESSION: Moderate hepatomegaly, no focal liver lesions
[2025-05-24 00:41] LABS: Basophils # (Auto) 0.1 Thou/mm3 (0.0-0.2); Basophils % (Auto) 0 % (0-2.5); Eosinophils # (Auto) 0.1 Thou/mm3 (0.0-0.5); Eosinophils % (Auto) 1 % (0-10); Hematocrit 34.8 % (36.0-46.0); Hemoglobin 11.4 g/dL (12.0-16.0); Immature Granulocytes Auto 0.06 Thou/mm3 (0.00-0.00); Lymphocytes # (Auto) 2.6 Thou/mm3 (1.0-4.8); Lymphocytes % (Auto) 19 % (10-50); Mean Corpuscular HGB Conc 32.8 g/dl (31.0-37.0); Mean Corpuscular Hemoglobin 31.1 pg (25.0-35.0); Mean Corpuscular Volume 95 fL (80-100); Monocytes # (Auto) 0.7 Thou/mm3 (0.0-0.8); Monocytes % (Auto) 5 % (0-12); Neutrophils # (Auto) 10.7 Thou/mm3 (1.8-7.7); Neutrophils % (Auto) 75 % (37-80); Nucleated Red Blood Cell # 0.00 Thou/mm3 (0.00-0.00); Nucleated Red Blood Cell % 0 /100 WBC (0); Platelet Count 419 Thou/mm3 (140-440); RDW Standard Deviation 49.6 fL (36.4-46.3); Red Blood Count 3.66 Miln/mm3 (4.00-5.20); White Blood Count 14.3 Thou/mm3 (3.6-11.0)
[2025-05-24 00:57] VITALS: BP 136/85; PULSE 77; RESP 16; TEMP 36.6; O2SAT 96
[2025-05-24 01:02] LABS: HCG,Qualitative Serum Negative
[2025-05-24 01:11] LABS: Alanine Aminotransferase 9 U/L (10-49); Albumin, Serum 4.4 gm/dL (3.5-5.0); Albumin/Globulin Ratio 1.6 (1.2-2.2); Alkaline Phosphatase 58 U/L (46-116); Amylase 57 U/L (30-118); Anion Gap 10 (7-16); Aspartate Amino Transferase 15 U/L (0-34); BUN/Creatinine Ratio 9 Ratio (12-20); Bilirubin,Direct < 0.1 mg/dL (0.0-0.3); Bilirubin,Total 0.2 mg/dL (0.3-1.2); Blood Urea Nitrogen 8 mg/dL (9-23); Calcium 8.6 mg/dL (8.3-10.6); Calcium (Corrected) 8.6 mg/dL (8.5-10.1); Carbon Dioxide 23.9 mMol/L (20.0-31.0); Chloride 107 mMol/L (98-107); Creatinine (Component) 0.9 mg/dL (0.6-1.3); Globulin 2.8 gm/dL (2.3-3.5); Glucose 132 mg/dL (74-106); Lipase 25 U/L (12-53); Magnesium 2.5 mg/dL (1.6-2.6); Osmolality,Calculated 281 (275-295); Potassium 3.8 mMol/L (3.4-5.1); Sodium 141 mMol/L (136-145); Total Protein 7.2 gm/dL (5.7-8.2); eGFR > 60 See Note
[2025-05-24] MEDS: MORPHINE SULF INJ 4 MG/ML VIAL 8 MG IM (01:18)
--- NOTE | 2025-05-24 02:14 | PRELIM_ITS ---
Pelvic ultrasound (transabdominal) with Doppler and wave Doppler spectral analysis. May 24, 2025 0031 hours Clinical history: Left pelvic pain Technique: Real-time, grayscale, transabdominal pelvic ultrasound was performed using Duplex scanning including arterial inflow, venous outflow, color and spectral Doppler. Comparison: No prior study is available for comparison. Findings: The uterus is normal in size measuring 9.6 x 4.0 x 5.5 cm. The endometrium is unremarkable and measures 0.5 cm. The right ovary measures 3.2 x 1.4 x 2.2 cm and is unremarkable. The left ovary measures 2.6 x 2.6 x 2.1 cm and is unremarkable. Both ovaries demonstrate color flow and spectral waveforms on Doppler evaluation. There is no adnexal mass. There is no free fluid on the submitted images. Impression: Unremarkable pelvic sonogram. No evidence of ovarian torsion. Report Electronically Signed By: Kike Wolfe 05/24/2025 2:14:31 AM [EST]
--- NOTE | 2025-05-24 02:19 | PRELIM_ITS ---
Gallbladder ultrasound with Doppler and wave Doppler spectral analysis. May 24, 2025 AT 0037 hours Clinical history: Abdominal pain. Comparison: No prior study is available for comparison. Findings: The visualized liver demonstrates increased echogenicity. Hepatomegaly. Gallbladder wall thickening. No gallbladder calculus or pericholecystic fluid is identified. The common duct is normal in caliber at 3.1 mm. No free fluid is demonstrated on the submitted images. The portal vein is patent with hepatopetal flow and normal wave Doppler spectral analysis. The hepatic veins are patent with normal wave Doppler spectral analysis. The pancreas is within normal limits. The IVC is patent with normal wave Doppler spectral analysis. The imaged portions of the left kidney are within normal limits. Impression: Gallbladder wall thickening, acute cholecystitis cannot be excluded. Consider correlation with HIDA scan. Hepatomegaly associated with liver steatosis, suspicious for steatohepatitis. Report Electronically Signed By: Kike Wolfe 05/24/2025 2:20:30 AM [EST]
[2025-05-24 02:41] LABS: Collection Type, Urine Clean Catch
--- NOTE | 2025-05-24 02:57 | PRELIM_ITS ---
CT scan of the abdomen and pelvis without intravenous contrast (axial sections with sagittal and coronal reformats). May 24, 2025 at 0131 hours Clinical History: Left lower quadrant pain. Comparison: Ultrasound on May 24, 2025. Findings: Partially calcified lung nodule in the left lower lobe. The liver, gallbladder, pancreas, spleen, kidneys and adrenals are unremarkable on this noncontrast study. No evidence of bowel obstruction. The appendix is within normal limits. There is no mesenteric or retroperitoneal adenopathy. The urinary bladder is unremarkable. There is no free fluid or free air. No acute fractures. Mild anterolisthesis of L5. Fecal loading. Impacted stools in the rectum. The uterus and ovaries are within normal limits. Impression: 1. Impacted stools in the rectum associated with fecal loading. Consider disimpaction. 2. No evidence of kidney or ureteral stones. 3. Mild anterolisthesis of L5. Report Electronically Signed By: Kike Wolfe 05/24/2025 2:57:27 AM [EST]
[2025-05-24 02:59] LABS: Amorphous Crystals,Urine Present (Absent); Bacteria,Urine Rare; Bilirubin,Urine Negative (Negative); Blood,Urine Negative (Negative); Clarity,Urine Turbid (Clear/Hazy); Color,Urine Yellow (Lt Yel-Yel); Culture Indicated,Urine Not Indicated; Glucose, Urine Negative (Negative); Ketones,Urine Negative (Negative); Leukocyte Esterase,Urine Negative (Negative); Nitrite,Urine Negative (Negative); PH,Urine 6.5 (5.0-7.0); Protein,Urine Negative (Neg - Trace); RBC,Urine 1 /hpf (0-3); Specific Gravity,Urine 1.016 (1.001-1.035); Squamous Epithelial Cell,Urine 15 /hpf (0-5); Urobilinogen,Urine Negative mg/dL (0.0-1.0); WBC,Urine 6 /hpf (0-5)
[2025-05-24] MEDS: MAGNESIUM CITRATE 300 ML BTL PO (03:27)
== END 2025-05-24 03:30 | disposition home or self-care (01) ==
LOC: SERX 05-24 03:40
PROVIDERS: Emergency Provider Emergency Medicine
DX: K59.00 Constipation, unspecified (principal); R10.32 Left lower quadrant pain; R10.22 Pelvic and perineal pain left side
CPT/HCPCS: 36415; 74176; 76705; 76856; 80053; 81001; 82150; 82248; 83690; 83735; 84703; 85025; 96372; 99284; J2270; Q0162; A9270

== ENCOUNTER → 2025-05-26 | Outpatient (CLI) | payer MEDICAID, SELFPAY | END | disposition home or self-care (01) | PROVIDERS: Visit Provider Student in an Organized Health Care Education/Training Program | DX: S31.829A Unspecified open wound of left buttock, initial encounter (principal); X58.XXXA Exposure to other specified factors, initial encounter; L02.31 Cutaneous abscess of buttock; I10 Essential (primary) hypertension; D64.9 Anemia, unspecified | CPT/HCPCS: 11042 ==

== ENCOUNTER → 2025-06-02 | Outpatient (CLI) | payer MEDICAID, SELFPAY | END | disposition home or self-care (01) | LOC: SWHD 08:48 | PROVIDERS: PCP Specialist; Referring Provider Specialist; Visit Provider Surgery | DX: S31.829A Unspecified open wound of left buttock, initial encounter (principal); X58.XXXA Exposure to other specified factors, initial encounter; L02.31 Cutaneous abscess of buttock; I10 Essential (primary) hypertension; D64.9 Anemia, unspecified | CPT/HCPCS: 99213; G0463 ==

== ENCOUNTER → 2025-06-09 | Outpatient (CLI) | payer MEDICAID, SELFPAY | END | disposition home or self-care (01) | LOC: SWHD 08:32 | PROVIDERS: Visit Provider Student in an Organized Health Care Education/Training Program | DX: S31.829A Unspecified open wound of left buttock, initial encounter (principal); X58.XXXA Exposure to other specified factors, initial encounter; L02.31 Cutaneous abscess of buttock; I10 Essential (primary) hypertension; D64.9 Anemia, unspecified | CPT/HCPCS: 99213; G0463 ==

== ENCOUNTER → 2025-06-16 | Outpatient (CLI) | payer MEDICAID, SELFPAY | END | disposition home or self-care (01) | LOC: SWHD 08:26 | PROVIDERS: PCP Physician Assistant; Referring Provider Physician Assistant; Visit Provider Surgery | DX: S31.829A Unspecified open wound of left buttock, initial encounter (principal); X58.XXXA Exposure to other specified factors, initial encounter; L02.31 Cutaneous abscess of buttock; I10 Essential (primary) hypertension; D64.9 Anemia, unspecified | CPT/HCPCS: 99213; A9270; G0463 ==

== ENCOUNTER → 2025-06-23 | Outpatient (CLI) | payer MEDICAID, SELFPAY | END | disposition home or self-care (01) | LOC: SWHD 08:56 | PROVIDERS: PCP Physician Assistant; Referring Provider Physician Assistant; Visit Provider Student in an Organized Health Care Education/Training Program | DX: S31.829A Unspecified open wound of left buttock, initial encounter (principal); X58.XXXA Exposure to other specified factors, initial encounter; L02.31 Cutaneous abscess of buttock; I10 Essential (primary) hypertension; D64.9 Anemia, unspecified | CPT/HCPCS: 99213; G0463 ==